=== PATIENT | male | born 1960 | race Caucasian/White ===

== ENCOUNTER 2016-09-09 05:56 | Inpatient (IN) | payer OTHER ==
[2016-09-07 11:55] VITALS: BMI 32.1
--- NOTE | 2016-09-07 16:14 | HP ---
Satellite [facility] - Chief Complaint Chief Complaint: right hip pain - Past Medical History Allergies/Adverse Reactions: Allergies Allergy/AdvReac Type Severity Reaction Status Date / Time No Known Allergies Allergy Verified 09/07/16 11:46 - Current Medications Current Medications: Home Medications Medication Instructions Recorded Gabapentin [Neurontin] 300 mg PO TID 09/07/16 Metoprolol Succinate [Toprol Xl] 100 mg PO HS 09/07/16 Naloxegol Oxalate [Movantik] 25 mg PO DAILY 09/07/16 Oxycodone HCl [Roxicodone] 60 mg PO Q8H 09/07/16 Trazodone HCl 100 mg PO DAILY 09/07/16 [facility] Physical Exam - Physical Examination General Appearance: Well Nourished, Well Developed, Alert & Oriented x3 ENT: Clear Lung: Normal air movement Heart: Regular rate & rhythm Extremities: Other (right hip- +ttp, decr rom, nvi xrays show severe hip djd) Neurological: Intact, Alert, Oriented Satellite Impression/Plan - Impression/Plan Impression: right hip djd Operative Procedure: right filomena thr Date to be Performed: 09/09/16
[2016-09-09] MEDS ORDERED: CELECOXIB 200 MG CAPSULE PO ONE (06:18)
[2016-09-09] MEDS ORDERED: oxyCODONE HCL 10 MG SUSTAINED ACTING TABLET PO ONE (06:18)
[2016-09-09] MEDS ORDERED: TRANEXAMIC ACID 1000 MG/10 ML VIAL IVPUSH ONE (06:18)
[2016-09-09] MEDS ORDERED: CEFAZOLIN 2 GM in DEXTROSE 5%-WATER - 50 ML IVPB ONE (06:18)
[2016-09-09] MEDS ORDERED: GABAPENTIN 300 MG CAPSULE (FP) PO ONE (06:18)
[2016-09-09] MEDS ORDERED: DEXAMETHASONE SOD PHOSPHATE/PF 10 MG/ML SDV ONE ×2 (06:46→07:32)
[2016-09-09] MEDS ORDERED: ROPIVACAINE HCL 0.5% 30ML VIAL ONE (06:46)
[2016-09-09] MEDS ORDERED: MIDAZOLAM HCL 2 MG/2 ML SINGLE DOSE VIAL ONE (06:46)
[2016-09-09] MEDS ORDERED: SODIUM CHLORIDE 0.9% P/F 10 ML VIAL IJ ONE (06:47)
[2016-09-09] MEDS ORDERED: ceFAZolin SODIUM 1 GM VIAL ONE ×2 (07:29→08:27)
[2016-09-09] MEDS ORDERED: VANCOMYCIN 1,000 MG VIAL (RESTRICTED TO ID ONLY) ONE (07:30)
[2016-09-09] MEDS ORDERED: EPINEPHrine/PF 1 MG/1 ML (1:1,000) AMPULE ONE (07:31)
[2016-09-09] MEDS ORDERED: LIDOCAINE 1% P/F 10 MG/ML VIAL ONE (07:32)
[2016-09-09] MEDS ORDERED: BUPIVACAINE HCL/PF (5 MG/ML) 30 ML VIAL IJ ONE (07:32)
[2016-09-09] MEDS ORDERED: BUPIVACAINE HCL/PF 0.5% (5MG/ML) 10 ML VIAL ONE (08:07)
[2016-09-09] MEDS ORDERED: SUCCINYLCHOLINE CHLORIDE 200 MG/10 ML VIAL ONE (08:09)
[2016-09-09] MEDS ORDERED: PROPOFOL 20 ML ONE ×3 (08:09→09:11)
[2016-09-09] MEDS ORDERED: PHENYLEPHRINE HCL 10 MG/1 ML SINGLE DOSE VIAL ONE (08:45)
[2016-09-09] MEDS ORDERED: ePHEDrine SULFATE 50 MG/1 ML AMPULE ONE (08:45)
[2016-09-09] MEDS ORDERED: ONDANSETRON 4 MG/2 ML VIAL ONE (09:13)
[2016-09-09] MEDS ORDERED: VANCOMYCIN 1,000 MG VIAL (RESTRICTED TO ID ONLY) IVPB ONE (09:35)
[2016-09-09] MEDS ORDERED: MAGNESIUM HYDROX 2400MG/30ML ORAL SUSPENSION 30 ML CUP PO PRN (09:47)
[2016-09-09] MEDS ORDERED: ONDANSETRON 4 MG/2 ML VIAL IVPB PRN (09:47)
--- NOTE | 2016-09-09 09:49 | OP ---
Operative Note - Note: Operative Date: 09/09/16 (martín) Pre-Operative Diagnosis: right hip pain Operation: right filomena thr Post-Operative Diagnosis: Same as Pre-op Surgeon: Slim Fountain Hostess Host: Dimitris Winslow Anesthesiologist/INSURANCE TERRITORY MANAGER: Angeles Rodriguez Anesthesia: Spinal, Local Specimens Removed: femoral head Estimated Blood Loss (mls): 200 Operative Report Dictated: Yes
[2016-09-09] MEDS ORDERED: MAG HYDROX/AL HYDROX/SIMETH 30 ML UNIT-DOSE CUP PO PRN (09:54)
[2016-09-09] MEDS ORDERED: LACTATED RINGERS SOLUTION 1,000 ML IV SCH (10:00)
[2016-09-09] MEDS ORDERED: PATIENT'S OWN MEDICATION (NON-FORMULARY) (Naloxegol Oxalate [Movantik] 25 MG) PO SCH (10:00)
[2016-09-09] MEDS ORDERED: ACETAMINOPHEN 325 MG TABLET (FP) ONE (10:54)
[2016-09-09] MEDS: traZODone HCL 50 MG TABLET (FP) PO SCH (11:47)
[2016-09-09] MEDS: PANTOPRAZOLE 40 MG TABLET (FP) PO SCH (11:48)
[2016-09-09] MEDS: MULTIVITAMINS (DAILY MVI) TABLET (FP) PO SCH (11:48)
[2016-09-09] MEDS: SENNOSIDES/DOCUSATE COMBO (SENNA PLUS) TABLET (UD) PO SCH ×2 (11:48→21:41)
--- NOTE | 2016-09-09 12:17 | OP ---
DATE OF OPERATION: 09/09/2016 PREOPERATIVE DIAGNOSIS: Degenerative joint disease, right hip. POSTOPERATIVE DIAGNOSIS: Degenerative joint disease, right hip. PROCEDURE: Right total hip replacement with robotic arm navigation assistance (makoplasty). SURGEON: Slim Fountain MD JOURNEYMAN WIREMAN: DEMETRIS Chadwick ANESTHESIA: Spinal and regional. CLOSURE: [place] total hip system with a 56 Tritanium acetabulum, a 36 +2.5 ceramic head, a No. 5 Accolade II stem, No. 1 Vicryl for capsule and fascia, 0 and 2-0 subcutaneous, 3-0 Monocryl subcuticular for skin with skin glue for skin, 4-0 undyed Vicryl for pin sites. ESTIMATED BLOOD LOSS: Less than 100 mL. COMPLICATIONS: None. CONDITION: To recovery room in stable condition. DESCRIPTION OF OPERATIVE PROCEDURE: The patient was taken to the operating room. Spinal anesthesia as well as sciatic block was administered by the anesthesiologist. The IV Kefzol and TXA were administered prophylactically prior to the case. The patient was placed in the lateral decubitus position with all prominences well padded. An EKG pad was secured to the inferior pole of the patella for limb length calculations intraoperatively. The right hip area was prepped and draped in the usual sterile fashion. A 12.0- to 15.0-cm curved longitudinal incision over the posterolateral aspect of the greater trochanter was made. Hemostasis was achieved with Bovie cautery. Sharp dissection was carried down to the level of the fascia. The fascia was opened the entire length of the incision, spreading the gluteus maribeth fibers in the direction of their origin. A Charnley retractor was placed in this layer, and care was taken to be far away from the sciatic nerve. The short external rotators were detached off the insertion of the greater trochanter and peeled off the capsule. A posterior capsulectomy was then performed. A checkpoint was malleted into the greater trochanter. Three small stab incisions were done on the iliac crest. Through these stab incisions, threaded guide pins were drilled into the iliac crest. These pins were fastened to the Navigation array. The check point on the greater trochanter and the EKG pad on the inferior pole of the patella were used to measure preoperative limb length and offset. The hip was then dislocated. The hip was osteotomized at the appropriate level as directed by the preoperative template. Anterior and posterior retractors were placed around the acetabulum. Circumferential labrum was excised. A checkpoint was malleted into the acetabulum superiorly. The acetabulum was then registered with the Navigation device with multiple sites within the acetabulum and around the rim of the acetabulum. It was then confirmed popping the blue bubbles, confirming ideal position and confirmation of adequate registration with the Navigation device. Using a 48 reamer, which was decided preoperatively on the preoperative template, the robotic arm was brought into the field and was used to ream the acetabulum down to the appropriate depth with the appropriate orientation and inversion applied. After reaming, a good hemispherical bleeding surface was encountered in the acetabulum. A ESTEVAN shell of the appropriate size was then malleted into place achieving excellent fit. Confirmation of the appropriate orientation and inversion was confirmed using the probe and assuring that the acetabular cup was placed in the ideal position as templated preoperatively. A real liner was then clipped into place with a 10-degree lip in the posterior-superior quadrant. Anterior and posterior osteophytes were removed using osteotome. Next, our attention was directed to the femur. The proximal femur was opened with a box chisel, rat-tail, anchovy and serial reamers. This was done until the appropriate reamer achieved good fit and fill of the proximal femur. A trial reduction with the appropriate neck and head, as again measured from our preoperative template, was performed. Limb lengths were confirmed both visually and using the Navigation device, again measuring the inferior pole of the patella and the checkpoint of the greater trochanter. This confirmed ideal position of the femoral component, lengths, and offset. The trial components were removed. The real component was malleted into place. The head was cold-welded to the Charnley and the hip was reduced. Again, the hip was found to have equal limb lengths as described previously. The hip was also taken through a range of motion and found to be stable in external rotation and extension, was stable in marked flexion, stable in adduction and internal rotation, and had a positive hang test and negative telescoping. The hip was irrigated with copious amounts of irrigation. Hemostasis was achieved. Vancomycin powder was sprinkled into the joint. A second dose of TXA was administered. The fascia was closed with No. 1 Vicryl interrupted suture, 0 and 2-0 for subcutaneous, and 3-0 Monocryl subcuticular for skin with skin glue. This was followed by an Aquacel dressing. The patient was flipped into the supine position. Bilateral SCDs and an abduction pillow were applied. X-rays showed good position of the components. The patient was awakened from anesthesia and transferred to the recovery room in stable condition. Megan MONTIEL/[id number]
[2016-09-09] MEDS: oxyCODONE HCL 5 MG TABLET PO SCH ×2 (14:49→22:08)
[2016-09-09] MEDS: CEFAZOLIN 2 GM/D5W 50 ML IVPB SCH ×2 (16:02→23:57)
[2016-09-09] MEDS: KETOROLAC TROMETHAMINE 30 MG/1 ML VIAL IVPUSH SCH (17:28)
[2016-09-09] MEDS: ACETAMINOPHEN 325 MG TABLET (FP) PO SCH ×2 (17:29→23:57)
[2016-09-09] MEDS: METOPROLOL SUCCINATE 100 MG TAB.SR.24H (FP) PO SCH (21:41)
[2016-09-09] MEDS: GABAPENTIN 300 MG CAPSULE (FP) PO SCH (21:41)
[2016-09-09] MEDS: HYDROmorphone *PCA* 10MG/50ML DISP.SYRIN PCA SCH (22:45)
[2016-09-10] MEDS: KETOROLAC TROMETHAMINE 30 MG/1 ML VIAL IVPUSH SCH ×3 (01:18→18:13)
[2016-09-10] MEDS ORDERED: oxyCODONE HCL 5 MG TABLET ONE (06:36)
[2016-09-10] MEDS: ACETAMINOPHEN 325 MG TABLET (FP) PO SCH ×4 (06:39→23:49)
[2016-09-10] MEDS: oxyCODONE HCL 5 MG TABLET PO SCH ×4 (06:40→23:44)
[2016-09-10 07:37] LABS: MCH 27.2 pg (25.7-33.7); MCHC 34.1 g/dl (32.0-35.9); MEAN CELL VOLUME 79.8 fl (80-96); MEAN PLT VOLUME 7.1 fl (7.5-11.1); PLATELET COUNT 187 K/MM3 (134-434); RDW 13.1 % (11.9-15.9); WHITE BLOOD COUNT 9.5 K/mm3 (4.0-10.0)
[2016-09-10] MEDS: ASPIRIN 325 MG TABLET PO SCH (09:44)
[2016-09-10] MEDS: traZODone HCL 50 MG TABLET (FP) PO SCH ×2 (09:46→12:29)
[2016-09-10] MEDS: GABAPENTIN 300 MG CAPSULE (FP) PO SCH ×2 (09:47→22:30)
[2016-09-10] MEDS: PANTOPRAZOLE 40 MG TABLET (FP) PO SCH (09:47)
[2016-09-10] MEDS: SENNOSIDES/DOCUSATE COMBO (SENNA PLUS) TABLET (UD) PO SCH ×2 (09:48→22:00)
[2016-09-10] MEDS: MULTIVITAMINS (DAILY MVI) TABLET (FP) PO SCH (09:48)
[2016-09-10] MEDS ORDERED: traZODone HCL 50 MG TABLET (FP) PO SCH (22:00)
[2016-09-10] MEDS: METOPROLOL SUCCINATE 100 MG TAB.SR.24H (FP) PO SCH (22:25)
[2016-09-10] MEDS: HYDROmorphone *PCA* 10MG/50ML DISP.SYRIN PCA SCH (23:12)
[2016-09-11] MEDS: KETOROLAC TROMETHAMINE 30 MG/1 ML VIAL IVPUSH SCH (02:03)
[2016-09-11] MEDS: ACETAMINOPHEN 325 MG TABLET (FP) PO SCH (06:27)
[2016-09-11 06:28] VITALS: BP 137/75; PULSE 78; TEMP 98.4
[2016-09-11 08:12] LABS: MCH 26.8 pg (25.7-33.7); MCHC 33.3 g/dl (32.0-35.9); MEAN CELL VOLUME 80.5 fl (80-96); MEAN PLT VOLUME 8.1 fl (7.5-11.1); PLATELET COUNT 179 K/MM3 (134-434); RDW 13.7 % (11.9-15.9); WHITE BLOOD COUNT 6.5 K/mm3 (4.0-10.0)
[2016-09-11] MEDS: ASPIRIN 325 MG TABLET PO SCH (08:55)
[2016-09-11] MEDS: oxyCODONE HCL 5 MG TABLET PO SCH (08:57)
--- NOTE | 2016-09-11 09:47 | PN ---
Progress Note (short form) - Note Progress Note: AVSS COMFORTABLE BANDAGES CLEAN AND DRY CALF SOFT AND NT NVI HCY OK IMP: DOING WELL PLAN: DC TO HOME, F/U MY OFFICE X 10 DAYS
--- NOTE | 2016-09-15 12:20 | PATH ---
Surgical Pathology Report Patient Name: JULIA LEIGH Med. Rec. #: [id number] /Age/Gender: 1960 (Age: 56) / M Account: [id number] Location: [facility] Taken: 09/09/2016 Received: 09/09/2016 Reported: 09/15/2016 Physicians: Slim Fountain M.D. Specimen(s) Received RIGHT FEMORAL HEAD BONE Clinical History Osteoarthritis right hip Final Diagnosis FEMORAL HEAD, RIGHT, TOTAL HIP REPLACEMENT: DEGENERATIVE JOINT DISEASE. Electronically Signed Leta Donald M.D. Gross Description Received in formalin, labeled "right femoral head," is a 5.3 x 5.2 x 4.8 cm. femoral head with a 1 cm in length portion of femoral neck attached. The margin of resection is smooth. There is a 5.5 cm in greatest dimension area of eburnation present. The remaining articular surface is peguero-yellow and diffusely nodular and granular. The underlying trabecular bone is yellow and hard. A manufacturer's service representative section is submitted in one cassette, following decalcification. 09/13/201609/13/2016
== END 2016-09-11 09:40 | disposition home health service (06) | DRG 470 ==
LOC: FM/S 05:56
PROVIDERS: ADMIT Orthopaedic Surgery; ATTEND Orthopaedic Surgery
PROC: 8E0W0CZ Robotic Assisted Procedure of Trunk Region, Open Approach (ICD-10-PCS; 2016-09-09)
PROC: 0SR903A Replacement of Right Hip Joint with Ceramic Synthetic Substitute, Uncemented, Open Approach (ICD-10-PCS; principal; 2016-09-09 08:38)
DX: M16.11 Unilateral primary osteoarthritis, right hip (principal)
CPT/HCPCS: 36415; 73502-TC-RT; 85027; 88304-TC; 88311-TC; 94010; 94760; 97116-GP

== ENCOUNTER 2019-04-30 07:15 | Inpatient (IN) | payer OTHER ==
[2019-04-15 11:56] VITALS: BMI 32.8
[2019-04-30] MEDS ORDERED: CEFAZOLIN 3 GM in DEXTROSE 5%-WATER - 100 ML IVPB ONE (07:32)
[2019-04-30] MEDS ORDERED: CELECOXIB 200 MG CAPSULE PO ONE (07:32)
[2019-04-30] MEDS ORDERED: TRANEXAMIC ACID 1000 MG/10 ML VIAL IVPUSH ONE (07:32)
--- NOTE | 2019-04-30 07:59 | HP ---
Satellite [facility] - Chief Complaint Chief Complaint: left hip pain - Past Medical History Allergies/Adverse Reactions: Allergies Allergy/AdvReac Type Severity Reaction Status Date / Time No Known Allergies Allergy Verified 09/07/16 11:46 - Current Medications Current Medications: Home Medications Medication Instructions Recorded Metoprolol Succinate [Toprol Xl] 100 mg PO HS 09/07/16 Naloxegol Oxalate [Movantik] 25 mg PO DAILY 09/07/16 traZODone HCL [Trazodone HCl] 100 mg PO HS 09/07/16 Oxycodone HCl 30 mg PO ASDIR 04/15/19 Satellite Physical Exam - Physical Examination General Appearance: Well Nourished, Well Developed, Alert & Oriented x3 ENT: Clear Lung: Normal air movement Extremities: Other (left hip- + ttp, decr rom , nvi, xrays show grade 4 hip djd) Neurological: Intact, Alert, Oriented Satellite Impression/Plan - Impression/Plan Impression: left hip djd Operative Procedure: left filomena thr Date to be Performed: 04/30/19
[2019-04-30] MEDS ORDERED: MIDAZOLAM HCL 2 MG/2 ML SINGLE DOSE VIAL ONE (08:17)
[2019-04-30] MEDS ORDERED: ceFAZolin SODIUM 1 GM VIAL ONE ×3 (08:48→18:04)
[2019-04-30] MEDS ORDERED: VANCOMYCIN 1,000 MG VIAL (RESTRICTED TO ID ONLY) ONE ×2 (08:48→10:23)
[2019-04-30] MEDS ORDERED: DEXAMETHASONE SOD PHOSPHATE 4 MG/1 ML VIAL ONE (08:51)
[2019-04-30] MEDS ORDERED: SODIUM CHLORIDE 0.9% P/F 10 ML VIAL IJ ONE (08:51)
[2019-04-30] MEDS ORDERED: LIDOCAINE HCL/PF 2% SDV 5ML VIAL ONE (08:53)
[2019-04-30] MEDS ORDERED: PROPOFOL 20 ML ONE ×4 (08:53→11:09)
[2019-04-30] MEDS ORDERED: ONDANSETRON 4 MG/2 ML VIAL IVPUSH PRN ×2 (09:58→11:39)
[2019-04-30] MEDS ORDERED: MAG HYDROX/AL HYDROX/SIMETH 30 ML UNIT-DOSE CUP PO PRN (09:58)
[2019-04-30] MEDS ORDERED: MAGNESIUM HYDROX 2400MG/30ML ORAL SUSPENSION 30 ML CUP PO PRN (09:58)
[2019-04-30] MEDS ORDERED: LACTATED RINGERS SOLUTION 1,000 ML IV SCH ×2 (10:00→11:45)
[2019-04-30] MEDS ORDERED: PATIENT'S OWN MEDICATION (NON-FORMULARY) (Naloxegol Oxalate [Movantik] 25 MG) PO SCH (10:00)
[2019-04-30] MEDS ORDERED: PANTOPRAZOLE 40 MG TABLET (FP) PO SCH (10:00)
[2019-04-30] MEDS ORDERED: MULTIVITAMINS (DAILY MVI) TABLET (FP) PO SCH (10:00)
[2019-04-30] MEDS ORDERED: VANCOMYCIN 1,000 MG VIAL (RESTRICTED TO ID ONLY) IVPB ONE (11:04)
--- NOTE | 2019-04-30 11:30 | OP ---
Operative Note - Note: Operative Date: 04/30/19 (martín) Pre-Operative Diagnosis: left hip djd Operation: left filomena thr Post-Operative Diagnosis: Same as Pre-op Surgeon: Slim Fountain Hydraulic Dredge Operator: Dimitris Winslow Anesthesia: Spinal, Local Specimens Removed: femoral head Estimated Blood Loss (mls): 100
[2019-04-30] MEDS: HYDROmorphone HCL CARPU-JECT 2 MG/1 ML DISP.SYRIN IVPUSH ONE ×2 (11:40→11:50)
[2019-04-30] MEDS ORDERED: HYDROmorphone *PCA* 10MG/50ML DISP.SYRIN PCA SCH (11:45)
[2019-04-30] MEDS ORDERED: HYDROmorphone HCl 2 MG/ML VIAL ONE (11:54)
[2019-04-30] MEDS ORDERED: ACETAMINOPHEN INJECTION 100 ML IVPB ONE (12:10)
[2019-04-30] MEDS ORDERED: ACETAMINOPHEN 1000 MG/100 ML VIAL (NON FORMULARY) IVPB ONE (12:30)
--- NOTE | 2019-04-30 13:37 | SPEC ---
DATE OF OPERATION: 04/30/2019 PREOPERATIVE DIAGNOSIS: Degenerative joint disease, left hip. POSTOPERATIVE DIAGNOSIS: Degenerative joint disease, left hip. PROCEDURE PERFORMED: Left total hip replacement with robotic-assisted navigation (MAKOplasty). SURGICAL ATTENDING: Isidro Fountain MD AUTO CLAIM REPRESENTATIVE: DEMETRIS Chadwick ANESTHESIA: Regional and spinal. CLOSURE: A [place] total hip system with a 56 Trident II press-fit acetabular shell, a number 5 Accolade II femoral stem, a 36-mm ceramic femoral head +2.5 in length, a polyethylene liner with 10-degree lip accepting a 36-mm head. Number 1 Vicryl for fascia, 0 and 2-0 subcutaneous, 3-0 V-Loc for skin with skin glue, 4-0 undyed Vicryl for pin sites. ESTIMATED BLOOD LOSS: Less than 100 mL. COMPLICATIONS: None. CONDITION: To the recovery room in stable condition. DESCRIPTION OF PROCEDURE: The patient was taken to the operating room on April 30, 2019. General and regional anesthesia was administered by the anesthesiologist. IV Kefzol and TXA were administered prophylactically prior to the case. The patient was placed in the lateral decubitus position will all prominences well-padded. The left hip area was prepped and draped in the usual sterile fashion. Using 3 small stab incisions over the iliac crest, 3 threaded pins were drilled in power fashion through the 2 tables of the crest. These pins were fastened and the navigation array for the Richard navigation system. Next, a 12 to 15-cm curved longitudinal incision over the posterolateral aspect of the greater trochanter was incised. Hemostasis was achieved with Bovie cautery. Sharp dissection was carried down to level of the fascia. The fascia was opened the entire length of the incision, spreading the fibers of the gluteus maribeth in the direction of origin. A Charnley retractor was placed in this layer. Care was taken not to impale the sciatic nerve. The short external rotators were detached off the insertion of the greater trochanter and peeled off the capsule. A posterior capsulotomy was then performed. A check point was malleted into the greater trochanter and a point on the inferior pole of the patella was obtained as well. These 2 points were used to assess the preoperative offset and limb lengths of the hip. The hip was then dislocated. The femoral neck was then osteotomized down to the appropriate level as directed by the navigation device. Anterior and posterior retractors were placed, exposing the acetabulum. A circumferential labral excision was performed. A check point was malleted into the acetabulum as well. Multiple sites inside the acetabulum and around the rim were utilized to register the acetabulum with the navigation device. An excellent registration of less than 0.5 mm was obtained. The hip was then reamed with the appropriate reamer down to the appropriate depth, with the appropriate orientation and version as assessed on our preoperative plan for this patient. The reamer was removed and the acetabulum was inspected to have good bleeding surfaces throughout. The real acetabular cup was then malleted down into place, with the holes in the appropriate position, until an excellent fixation was obtained. No screws were necessary. The navigation device ensured appropriate orientation and version, with the depth as predetermined. The appropriate liner was then clipped into place. Attention was directed to the femur. The proximal femur was prepared by use a box chisel, a canal finder and serial broaches until the broach achieved excellent rigidity in the proximal femur with the appropriate version being applied. A calcar planer was used to smooth off the calcar flush with the trial components. A trial reduction with the appropriate head was done, and the hip was reduced. The hip was taken through a range of motion from full extension with external rotation to marked flexion and was stable at 90 degrees of flexion. It was stable to marked abduction and internal rotation, with a positive hang test and negative telescoping. Limb lengths were ascertained visually as well as with the navigation device to be within the targeted range for this patient. The trial component was removed. The real component was then malleted into place. The head was cold welded to the trunnion, and the hip was reduced. Range of motion, stability and limb lengths were as described in the trial component. Then the hip was pulse antibiotic irrigated. Vancomycin powder was placed in the hip joint. The capsule was closed. The fascia was then closed as well using number 1 Vicryl interrupted suture, 0 and 2-0 subcutaneous, and 3-0 V-Loc for the skin. 4-0 undyed Vicryl was used to close the pin sites after the pins were removed. All check points were also removed. Sterile Aquacel dressing was applied. The patient was awakened from anesthesia and transferred into the supine position. Bilateral SCDs and an abduction pillow were placed. X-rays revealed excellent position of the components. The patient was transferred to the recovery room in stable condition, with no complications. Estimated blood loss was less than 100 mL. ISIDRO FOUNTAIN M.D. EDILIA/[id number]
[2019-04-30] MEDS ORDERED: DEXTROSE 5%-WATER 100 ML IVPB ONE (18:04)
--- NOTE | 2019-04-30 18:08 | PN ---
Progress Note, Physician - Current Medication List Current Medications: Active Medications Acetaminophen (Tylenol -) 650 mg PO Q6H ALE Stop: 05/03/19 18:29 Al Hydroxide/Mg Hydroxide (Mylanta Oral Suspension -) 30 ml PO Q4H PRN PRN Reason: DYSPEPSIA Aspirin (Asa -) 325 mg PO DAILY@0800 [facility] Hydromorphone HCl (Hydromorphone 10 Mg/50 Ml-Ns) 10 mg WOOD FINISHER WOOD FINISHER ALE; Protocol Stop: 05/07/19 11:46 Last Admin: 04/30/19 12:05 Dose: 10 mg Cefazolin Sodium 3 gm/ (Dextrose) 100 mls @ 100 mls/hr IVPB Q8H ALE Stop: 05/01/19 02:59 Lactated Ringer's (Lactated Ringers Solution) 1,000 mls @ 125 mls/hr IV ASDIR ALE Stop: 05/01/19 06:00 Lactated Ringer's (Lactated Ringers Solution) 1,000 mls @ 75 mls/hr IV ASDIR ALE Magnesium Hydroxide (Milk Of Magnesia -) 30 ml PO PRN PRN PRN Reason: CONSTIPATION Metoprolol Succinate (Toprol Xl -) 100 mg PO HS [facility] Multivitamins/Minerals/Vitamin C (Tab-A-Vit -) 1 tab PO DAILY [facility] Non-Formulary Medication (Naloxegol Oxalate [Movantik]) 25 mg PO DAILY [facility] Ondansetron HCl (Zofran Injection) 4 mg IVPUSH Q6H PRN PRN Reason: NAUSEA Pantoprazole Sodium (Protonix -) 40 mg PO DAILY [facility] Senna/Docusate Sodium (Pericolace -) 2 tablet PO BID [facility]LE Trazodone HCl (Desyrel -) 100 mg PO HS [facility] - Objective Vital Signs: Vital Signs Temperature 97.5 F L 04/30/19 14:30 Pulse Rate 71 04/30/19 16:05 Respiratory Rate 16 04/30/19 16:05 Blood Pressure 134/79 04/30/19 16:05 O2 Sat by Pulse Oximetry (%) 98 04/30/19 16:05
--- NOTE | 2019-04-30 18:09 | CONSULT ---
Consult - Past Medical History Cardio/Vascular: Yes: HTN Musculoskeletal: Yes: Osteoarthritis - Past Surgical History Past Surgical History: Yes: Joint Replacement - Alcohol/Substance Use Hx Alcohol Use: No - Smoking History Smoking history: Never smoked Home Medications - Allergies Allergies/Adverse Reactions: Allergies Allergy/AdvReac Type Severity Reaction Status Date / Time No Known Allergies Allergy Verified 09/07/16 11:46 - Home Medications Home Medications: Ambulatory Orders Metoprolol Succinate [Toprol Xl] 100 mg PO HS 09/07/16 Naloxegol Oxalate [Movantik] 25 mg PO DAILY 09/07/16 traZODone HCL [Trazodone HCl] 100 mg PO HS 09/07/16 Oxycodone HCl 30 mg PO ASDIR 04/15/19 Physical Exam Vital Signs: Vital Signs Temperature 97.5 F L 04/30/19 14:30 Pulse Rate 71 04/30/19 16:05 Respiratory Rate 16 04/30/19 16:05 Blood Pressure 134/79 04/30/19 16:05 O2 Sat by Pulse Oximetry (%) 98 04/30/19 16:05 Cardiovascular: Yes: Regular Rate and Rhythm Respiratory: Yes: Regular, CTA Bilaterally Gastrointestinal: Yes: Normal Bowel Sounds, Soft Edema: No Peripheral Pulses WNL: Yes Wound/Incision: Yes: Dressing Dry and Intact Neurological: Yes: Alert, Oriented Problem List - Problems (1) HTN (hypertension) Assessment/Plan: same meds monitor Code(s): I10 - ESSENTIAL (PRIMARY) HYPERTENSION (2) S/P hip replacement Assessment/Plan: dvt prophylaxis per ortho Code(s): Z96.649 - PRESENCE OF UNSPECIFIED ARTIFICIAL HIP JOINT (3) Osteoarthritis Code(s): M19.90 - UNSPECIFIED OSTEOARTHRITIS, UNSPECIFIED SITE
[2019-04-30] MEDS: CEFAZOLIN 3 GM in DEXTROSE 5%-WATER 100 ML IVPB SCH (18:19)
[2019-04-30] MEDS: ACETAMINOPHEN 325 MG TABLET (FP) PO SCH (18:20)
[2019-04-30] MEDS: SENNOSIDES/DOCUSATE COMBO (SENNA PLUS) TABLET (UD) PO SCH (21:26)
[2019-04-30] MEDS ORDERED: traZODone HCL 100 MG TABLET (FP) PO SCH (22:00)
[2019-05-01] MEDS: ACETAMINOPHEN 325 MG TABLET (FP) PO SCH ×3 (00:29→12:29)
[2019-05-01] MEDS ORDERED: DEXTROSE 5%-WATER 100 ML IVPB ONE (00:36)
[2019-05-01] MEDS ORDERED: ceFAZolin SODIUM 1 GM VIAL ONE (00:36)
[2019-05-01] MEDS: CEFAZOLIN 3 GM in DEXTROSE 5%-WATER 100 ML IVPB SCH (01:02)
[2019-05-01] MEDS: KETOROLAC TROMETHAMINE 30 MG/1 ML VIAL IVPUSH PRN ×2 (02:16→07:20)
[2019-05-01] MEDS ORDERED: ASPIRIN 325 MG TABLET PO SCH (08:00)
[2019-05-01 08:01] LABS: HEMATOCRIT 36.9 % (35.4-49); MCH 27.2 pg (25.7-33.7); MCHC 32.5 g/dl (32.0-35.9); MEAN CELL VOLUME 83.7 fl (80-96); PLATELET COUNT 213 K/MM3 (134-434); RBC 4.41 M/mm3 (4.00-5.60); RDW 13.3 % (11.9-15.9)
[2019-05-01] MEDS ORDERED: oxyCODONE HCL 5 MG TABLET PO PRN (08:02)
[2019-05-01] MEDS ORDERED: HYDROmorphone HCL CARPU-JECT 1 MG/1 ML DISP.SYRIN IVPUSH PRN (08:09)
--- NOTE | 2019-05-01 08:28 | PN ---
Progress Note, Physician - Current Medication List Current Medications: Active Medications Acetaminophen (Tylenol -) 650 mg PO Q6H [facility] Stop: 05/03/19 18:29 Last Admin: 05/01/19 06:45 Dose: 650 mg Al Hydroxide/Mg Hydroxide (Mylanta Oral Suspension -) 30 ml PO Q4H PRN PRN Reason: DYSPEPSIA Aspirin (Asa -) 325 mg PO DAILY@0800 [facility] Last Admin: 05/01/19 08:14 Dose: 325 mg Hydromorphone HCl (Hydromorphone 10 Mg/50 Ml-Ns) 10 mg PECAN PICKER PECAN PICKER [facility]; Protocol Stop: 05/07/19 11:46 Last Admin: 04/30/19 12:05 Dose: 10 mg Hydromorphone HCl (Dilaudid Injection -) 1 mg IVPUSH Q4H PRN PRN Reason: PAIN LEVEL 7 - 10 Lactated Ringer's (Lactated Ringers Solution) 1,000 mls @ 75 mls/hr IV ASDIR [facility] Ketorolac Tromethamine (Toradol Injection -) 30 mg IVPUSH Q6H PRN PRN Reason: PAIN LEVEL 4 - 6 Stop: 05/06/19 02:07 Last Admin: 05/01/19 07:20 Dose: 30 mg Magnesium Hydroxide (Milk Of Magnesia -) 30 ml PO PRN PRN PRN Reason: CONSTIPATION Metoprolol Succinate (Toprol Xl -) 100 mg PO HS [facility] Last Admin: 04/30/19 21:26 Dose: 100 mg Multivitamins/Minerals/Vitamin C (Tab-A-Vit -) 1 tab PO DAILY [facility] Non-Formulary Medication (Naloxegol Oxalate [Movantik]) 25 mg PO DAILY [facility] Ondansetron HCl (Zofran Injection) 4 mg IVPUSH Q6H PRN PRN Reason: NAUSEA Oxycodone HCl (Roxicodone -) 10 mg PO Q3H PRN PRN Reason: PAIN LEVEL 4 - 6 Oxycodone HCl (Oxycontin -) 30 mg PO BID [facility] Stop: 05/04/19 08:02 Pantoprazole Sodium (Protonix -) 40 mg PO DAILY [facility] Senna/Docusate Sodium (Pericolace -) 2 tablet PO BID [facility] Last Admin: 04/30/19 21:26 Dose: 2 tablet Trazodone HCl (Desyrel -) 100 mg PO HS [facility] Last Admin: 04/30/19 21:26 Dose: 100 mg - Objective Vital Signs: Vital Signs Temperature 99.6 F 05/01/19 05:00 Pulse Rate 69 05/01/19 05:00 Respiratory Rate 18 05/01/19 08:17 Blood Pressure 116/72 05/01/19 05:00 O2 Sat by Pulse Oximetry (%) 97 05/01/19 08:17 Cardiovascular: Yes: Regular Rate and Rhythm Respiratory: Yes: Regular, CTA Bilaterally Gastrointestinal: Yes: Normal Bowel Sounds, Soft Labs: CBC, BMP 05/01/19 07:22 Problem List - Problems (1) HTN (hypertension) Assessment/Plan: same meds monitor Code(s): I10 - ESSENTIAL (PRIMARY) HYPERTENSION (2) S/P hip replacement Assessment/Plan: dvt prophylaxis per ortho Code(s): Z96.649 - PRESENCE OF UNSPECIFIED ARTIFICIAL HIP JOINT (3) Osteoarthritis Assessment/Plan: CHRONIC WITH BACK ISSUES FOLLOWS WITH PAIN MANAGEMENT Code(s): M19.90 - UNSPECIFIED OSTEOARTHRITIS, UNSPECIFIED SITE
--- NOTE | 2019-05-01 09:14 | PN ---
Progress Note (short form) - Note Progress Note: Ortho Pt seen and examined s/p left filomena thr pod #1 Selected Entries 05/01/19 05:00 Temperature 99.6 F Pulse Rate 69 Respiratory 18 Rate Blood Pressure 116/72 Laboratory Tests 05/01/19 07:22 WBC 8.0 Hgb 12.0 Hct 36.9 D Plt Count 213 dressing c/d/i, calf soft, nt nvi a/p PT hip precautions dvt ppx pain control d/c home either today/tomorrow
--- NOTE | 2019-05-01 09:39 | PN ---
Progress Note (short form) - Note Progress Note: Anesthesia post op/pain Pt seen and examined S:Alert and awake, comfortable O: Vital Signs Temperature 99.6 F 05/01/19 05:00 Pulse Rate 69 05/01/19 05:00 Respiratory Rate 18 05/01/19 08:17 Blood Pressure 116/72 05/01/19 05:00 O2 Sat by Pulse Oximetry (%) 97 05/01/19 08:17 CBC, BMP 05/01/19 07:22 A/P: Current Active Problems HTN (hypertension) (Acute) Osteoarthritis (Acute) S/P hip replacement (Acute) Doing well post op Continue current care Jorge Rushing MD
[2019-05-01] MEDS ORDERED: oxyCODONE HCL 10 MG SUSTAINED ACTING TABLET PO SCH (10:00)
[2019-05-01] MEDS ORDERED: LORATADINE 10 MG TABLET PO SCH (10:00)
[2019-05-01] MEDS: SENNOSIDES/DOCUSATE COMBO (SENNA PLUS) TABLET (UD) PO SCH (10:18)
--- NOTE | 2019-05-01 13:37 | DS ---
Physical Examination Vital Signs: Vital Signs Temperature 97.9 F 05/01/19 10:00 Pulse Rate 66 05/01/19 10:00 Respiratory Rate 19 05/01/19 10:00 Blood Pressure 117/59 L 05/01/19 10:00 O2 Sat by Pulse Oximetry (%) 96 05/01/19 10:00 Labs: CBC, BMP 05/01/19 07:22 Discharge Summary Problems reviewed: Yes Reason For Visit: OSTEOARTHRITIS Current Active Problems HTN (hypertension) (Acute) Osteoarthritis (Acute) S/P hip replacement (Acute) Procedures: Principal: left thr Hospital Course: admitted for elective left filomena thr, post-op as per protocol, stable for d/c Condition: Good - Instructions Diet, Activity, Other Instructions: Post-op Instructions-Total Hip Replacement Call the office for a follow-up appointment in 1 week - [phone] Aspirin 325mg daily for 6 weeks. Pain medication was sent into your pharmacy. Apply Graduated Compression Stockings (TEDs) to both lower extremities- remove daily for hygiene ONLY Apply Sequential Compression Device (SCDs) to both Lower extremities remove for PT and hygiene ONLY Apply cold packs to affected area for 15 minutes every 2 hours. Physical Therapist will come to your home for the first 5 days. You will be set up with outpatient PT at your first post-operative visit. Patient may ambulate as tolerated-encourage self care (at least every 2-3 hours while awake) with walker or cane Maintain Aquacel (waterproof) dressing to operative wound (will be removed by surgeon at first office visit) Shower with Aquacel dressing in place-if Aquacel integrity compromised, remove and apply dry sterile dressing and notify Orthopedist. DO NOT SHOWER unless Orthopedists approves without Aquacel dressing CONTACT THE OFFICE FOR ANY CHANGE IN YOUR CONDITION (for example-fever greater than 102 degrees, excessive bleeding from operative site, purulent drainage, severe swelling or pain) GO TO THE EMERGENCY ROOM IF THERE IS A MEDICAL EMERGENCY Hip Precautions: * Keep a rolled towel under affected heel while in bed or chair (to keep knee in extension) * Dependent upon approach: * Posterior - do not cross legs; do not sit on low chairs or toilets. * If you have any questions, please do not hesitate to call the office - [phone]. Referrals: Slim Fountain MD [Staff Physician] - Disposition: VNS/HOME HEALTH CARE - Home Medications Comprehensive Discharge Medication List: Ambulatory Orders Metoprolol Succinate [Toprol Xl] 100 mg PO HS 09/07/16 Naloxegol Oxalate [Movantik] 25 mg PO DAILY 09/07/16 traZODone HCL [Trazodone HCl] 100 mg PO HS 09/07/16 Oxycodone HCl 30 mg PO ASDIR 04/15/19 Oxycodone HCl/Acetaminophen [Percocet 10-325 mg Tablet] 1 each PO Q6H #40 tablet MDD 4 05/01/19
[2019-05-01 14:19] VITALS: BP 117/80; PULSE 77; TEMP 99.7
--- NOTE | 2019-05-03 18:55 | PATH ---
Surgical Pathology Report Patient Name: JULIA LEIGH Med. Rec. #: [id number] /Age/Gender: 1960 (Age: 58) / M Account: [id number] Location: [facility] Taken: 04/30/2019 Received: 04/30/2019 Reported: 05/03/2019 Physicians: Slim Fountain M.D. Specimen(s) Received LEFT FEMORAL HEAD Clinical History Osteoarthritis left hip Final Diagnosis BONE, FEMORAL HEAD, LEFT, TOTAL HIP REPLACEMENT: BONE WITH DEGENERATIVE JOINT DISEASE. Electronically Signed Deja Aguirre M.D. Gross Description Received in formalin, labeled "left femoral head," is a 4.8 x 4.8 x 4.5 cm. femoral head with a 1.7 cm in length portion of femoral neck attached. The margin of resection is smooth. There is a 3.8 cm in greatest dimension area of eburnation present. The remaining articular surface is peguero-yellow and diffusely granular and nodular. The underlying trabecular bone is yellow and hard. A group sales representative section is submitted in one cassette, following decalcification. 05/01/2019 saudi05/01/2019
== END 2019-05-01 14:00 | disposition home health service (06) | DRG 470 ==
LOC: FM/S 07:15
PROVIDERS: ADMIT Orthopaedic Surgery; ATTEND Orthopaedic Surgery
PROC: 8E0W0CZ Robotic Assisted Procedure of Trunk Region, Open Approach (ICD-10-PCS; 2019-04-30)
PROC: 0SRB0JA Replacement of Left Hip Joint with Synthetic Substitute, Uncemented, Open Approach (ICD-10-PCS; principal; 2019-04-30 10:22)
DX: M16.12 Unilateral primary osteoarthritis, left hip (principal); I10 Essential (primary) hypertension
CPT/HCPCS: 36415; 73502-TC-LT-FY; 85027; 86803; 87389; 88305-TC; 88311-TC; 94760; 97116-GP; 97163-GP; J0131

== ENCOUNTER 2019-05-25 09:51 | Emergency (ER) | payer OTHER ==
[2019-05-25 09:58] VITALS: BP 144/88; PULSE 88; TEMP 97.8; BMI 31.5
--- NOTE | 2019-05-25 10:00 | PDOC ---
History of Present Illness - General Chief Complaint: Pain, Acute Stated Complaint: LEFT HIP DRAINAGE/PAIN Time Seen by Provider: 05/25/19 09:59 - History of Present Illness Initial Comments: 05/25/19 10:10 58yo male s/p L hip replacement presents ambulatory with a cane for eval of drainage from the L hip. Pt is s/p about 4 weeks from a L hip replacement for osteoarthritis. Last seen by Dr. Fountain on Monday and was told to follow up again Monday. When he went to the office yesterday it was closed. Pt states his L hip has been draining serosanguinous fluid since last monday. No abx. No f/c. No cp/sob. No abd pain. Pt states pain is 9/10 to the L hip. Very mild redness to the distal incision. No wound dehiscence. Pt denies n/v/d. No dysuria. Hx of a staph infection to the knee in . Pt denies all other complaints. Takes Oxycontin 30mg for the pain- took it this AM. Pmhx: denies All: nkda Pshx: R knee sx, R hip replacement, L hip replacement Past History - Past Medical History Allergies/Adverse Reactions: Allergies Allergy/AdvReac Type Severity Reaction Status Date / Time No Known Allergies Allergy Verified 05/25/19 09:52 Home Medications: Ambulatory Orders Metoprolol Succinate [Toprol Xl] 100 mg PO HS 09/07/16 Naloxegol Oxalate [Movantik] 25 mg PO DAILY 09/07/16 traZODone HCL [Trazodone HCl] 100 mg PO HS 09/07/16 Oxycodone HCl 30 mg PO ASDIR 04/15/19 Oxycodone HCl/Acetaminophen [Percocet 10-325 mg Tablet] 1 each PO Q6H #40 tablet MDD 4 05/01/19 Amoxicillin/Potassium Clav [Augmentin 875-125 Tablet] 1 each PO BID #20 tablet 05/25/19 Anemia: No Asthma: No Cancer: No Cardiac Disorders: No CVA: No COPD: No CHF: No Dementia: No Diabetes: No GI Disorders: No Disorders: No HTN: Yes Hypercholesterolemia: No Liver Disease: No Seizures: No Thyroid Disease: No - Surgical History Abdominal Surgery: Yes (Umbilical Hernia Repair) Appendectomy: No Cardiac Surgery: No Cholecystectomy: No Lung Surgery: No Neurologic Surgery: Yes (Lumbar Discectomy x2) Orthopedic Surgery: Yes (Right Kne Meniscus Repair, Lumbar Discectomy x2, Insertion of spinal stimula) - Psycho Social/Smoking Cessation Hx Smoking History: Never smoked Hx Alcohol Use: No Drug/Substance Use Hx: No Substance Use Type: None Hx Substance Use Treatment: No Review of Systems - Review of Systems Able to Perform ROS?: Yes Is the patient limited Sinhala proficient: No Constitutional: No: Chills, Fever Respiratory: No: Cough, Shortness of Breath Cardiac (ROS): No: Chest Pain, Palpitations ABD/GI: No: Diarrhea, Nausea, Vomiting : No: Burning, Dysuria Musculoskeletal: Yes: Joint Pain, Joint Swelling, Other (drainage from surgical site to L hip) Integumentary: No: Rash Neurological: No: Headache, Numbness, Paresthesia All Other Systems: Reviewed and Negative *Physical Exam - Vital Signs Last Vital Signs Temp Pulse Resp BP Pulse Ox 97.8 F 88 17 144/88 100 05/25/19 09:52 05/25/19 09:52 05/25/19 09:52 05/25/19 09:52 05/25/19 09:52 - Physical Exam General Appearance: Yes: Nourished, Appropriately Dressed, Apparent Distress, Mild Distress HEENT: positive: EOMI, Normal Voice Neck: positive: Supple Respiratory/Chest: positive: Lungs Clear, Normal Breath Sounds. negative: Respiratory Distress Cardiovascular: positive: Regular Rhythm, Regular Rate Gastrointestinal/Abdominal: positive: Soft. negative: Guarding, Rebound, Tenderness Musculoskeletal: positive: Normal Inspection Extremity: positive: Other (L hip incision intact with serosanguinous drainage from the distal end of the incision, very mild surrounding erythema, no warmth, +fluctuance, no induration). negative: Pedal Edema, Swelling, Calf Tenderness Integumentary: negative: Erythema, Rash Neurologic: positive: Fully Oriented, Normal Mood/Affect ED Treatment Course - LABORATORY CBC & Chemistry Diagram: 05/25/19 10:07 05/25/19 10:07 Medical Decision Making - Medical Decision Making 05/25/19 10:14 a/p: 58yo male s/p L hip replacement with drainage from the hip -pt states he called Dr. Fountain and spoke with the PA this am who recommended he come to the ER -drainage soaked his bed last night, soaking through ABD pads and paper towels -pt denies f/c -very mild surrounding erythema without warmth, no induration -poss superficial abscess vs post op seroma -very mild ttp -labs and cultures ordered -will discuss with orthopedics- call placed to Dr. Fountain -pain control -will monitor and reassess 05/25/19 10:22 case discussed with Dimitris (PA for dr. fountain) - requests ESR, CRP, wound culture will be in to see the patient in about an hour 05/25/19 11:27 xray without acute findings ortho pa at the bedside 05/25/19 11:37 Dimitris the PA has opened and drained the distal end of the incision- drained out a hematoma if no elevated wbc and labs dc on augmentin and if elevated with start iv abx 05/25/19 12:02 no elevated wbc dimitris agrees with dc to home he is prescribing abx will follow up on Monday with Dr. Fountain in the office. Discharge - Discharge Information Problems reviewed: Yes Clinical Impression/Diagnosis: Postoperative wound hematoma Condition: Stable Disposition: HOME - Admission No - Additional Discharge Information Prescriptions: Amoxicillin/Potassium Clav [Augmentin 875-125 Tablet] 1 each PO BID #20 tablet - Follow up/Referral Referrals: Slim Fountain MD [Staff Physician] - Agustin Bonds [Primary Care Provider] - - Patient Discharge Instructions Patient Printed Discharge Instructions: DI for Hematoma (Bruise) Additional Instructions: Please take all antibiotics as prescribed. Please go to the orthopedist appointment on monday as discussed. Please return to the ED with any further concerns or complaints. - Post Discharge Activity
[2019-05-25] MEDS ORDERED: morphine CARPU-JECT 4 MG/1 ML DISP.SYRIN IVPUSH ONE (10:02)
[2019-05-25] MEDS ORDERED: SODIUM CHLORIDE 0.9% 1000 ML INFUS.BAG IV ONE (10:02)
[2019-05-25] MEDS ORDERED: morphine SULFATE 4 MG/ML VIAL ONE (10:13)
[2019-05-25] MEDS ORDERED: KETOROLAC TROMETHAMINE 15 MG/ML VIAL ONE (10:48)
[2019-05-25] MEDS ORDERED: KETOROLAC TROMETHAMINE 15 MG/ML VIAL IVPUSH ONE (10:59)
[2019-05-25 11:36] LABS: BASO % 0.2 % (0-2.0); EOS % 0.2 % (0-4.5); HEMATOCRIT 36.4 % (35.4-49); HEMOGLOBIN 11.5 GM/dl (11.7-16.9); LYMPH % 8.9 % (8-40); MCH 26.1 pg (25.7-33.7); MCHC 31.5 g/dl (32.0-35.9); MEAN CELL VOLUME 82.8 fl (80-96); MEAN PLT VOLUME 7.9 fl (7.5-11.1); MONO % 5.5 % (3.8-10.2); NEUT % 85.2 % (42.8-82.8); PLATELET COUNT 417 K/MM3 (134-434); RDW 13.5 % (11.9-15.9); WHITE BLOOD COUNT 8.9 K/mm3 (4.0-10.8)
[2019-05-25 11:46] LABS: ALBUMIN 2.8 g/dl (3.4-5.0); BILIRUBIN,TOTAL 0.4 mg/dl (0.2-1); CALCIUM 8.3 mg/dl (8.5-10); CREATININE 0.7 mg/dl (0.55-1.3); POTASSIUM 3.9 mmol/L (3.5-5.1); TOT PROT 6.5 g/dl (6.4-8.2)
[2019-05-25 11:49] LABS: INR 1.32 (0.82-1.09); PROTHROMBIN TIME (PATIENT) 14.7 SEC (10.2-13.0)
--- NOTE | 2019-05-25 11:49 | CON.ORTH ---
Consult Reason for Consultation:: left hip drainage s/p thr - Past Medical History Cardio/Vascular: Yes: HTN Musculoskeletal: Yes: Osteoarthritis - Past Surgical History Past Surgical History: Yes: Joint Replacement - Alcohol/Substance Use Hx Alcohol Use: No - Smoking History Smoking history: Never smoked Home Medications - Allergies Allergies/Adverse Reactions: Allergies Allergy/AdvReac Type Severity Reaction Status Date / Time No Known Allergies Allergy Verified 05/25/19 09:52 - Home Medications Home Medications: Ambulatory Orders Metoprolol Succinate [Toprol Xl] 100 mg PO HS 09/07/16 Naloxegol Oxalate [Movantik] 25 mg PO DAILY 09/07/16 traZODone HCL [Trazodone HCl] 100 mg PO HS 09/07/16 Oxycodone HCl 30 mg PO ASDIR 04/15/19 Oxycodone HCl/Acetaminophen [Percocet 10-325 mg Tablet] 1 each PO Q6H #40 tablet MDD 4 05/01/19 Physical Exam for Ortho Vital Signs: Vital Signs Temperature 97.8 F 05/25/19 09:52 Pulse Rate 88 05/25/19 09:52 Respiratory Rate 17 05/25/19 09:52 Blood Pressure 144/88 05/25/19 09:52 O2 Sat by Pulse Oximetry (%) 100 05/25/19 09:52 Labs: CBC, BMP 05/25/19 10:07 - Lower Extremity Hip: Yes: Left, Pain, Swelling, Other (no drainage or pus, erythema on distal end of incision, slight serosanginous drainage, good rom of hip, calf, soft, nt , nvi) Imaging - Results X-ray: Image Reviewed Assessment/Plan 58yo male s/p L hip replacement presents ambulatory with a cane for eval of drainage from the L hip. Pt is s/p about 4 weeks from a L hip replacement for osteoarthritis. Last seen by Dr. Fountain on Monday and was told to follow up again Monday. When he went to the office yesterday it was closed. Pt states his L hip has been draining serosanguinous fluid since last Monday. No abx. No f/c. No cp/sob. No abd pain. Pt states pain is 9/10 to the L hip. Very mild redness to the distal incision. No wound dehiscence. Pt denies n/v/d. No dysuria. Hx of a staph infection to the knee in . Pt denies all other complaints. Takes Oxycontin 30mg for the pain- took it this AM. Pt has been afebrile with no fever , chills, n/v, CP. sob. Xrays are neg, WBC 8.5. a/p s/p left thr with stitch abscess Removed superficial stitch from incision- no pus Sterile pressure dressing was applied Pt is afebrile with normal WBC ok to d/c home with PO Augmentin Pt to follow-up on Monday with Dr. Fountain d/w Dr. Fountain
[2019-05-25] MEDS ORDERED: AMOX TR/POT CLAV 875MG/125MG TABLETS (FP) PO ONE (12:04)
[2019-05-25] MEDS ORDERED: AMOX TR/POT CLAV 875MG/125MG TABLETS (FP) ONE (12:05)
== END 2019-05-25 12:24 | disposition home or self-care (01) ==
LOC: FER 09:51
PROC: 3E0333Z Introduction of Anti-inflammatory into Peripheral Vein, Percutaneous Approach (ICD-10-PCS; principal; 2019-05-25)
PROC: 3E033NZ Introduction of Analgesics, Hypnotics, Sedatives into Peripheral Vein, Percutaneous Approach (ICD-10-PCS; 2019-05-25)
PROC: 3E013GC Introduction of Other Therapeutic Substance into Subcutaneous Tissue, Percutaneous Approach (ICD-10-PCS; 2019-05-25)
DX: L76.32 Postprocedural hematoma of skin and subcutaneous tissue following other procedure (principal); Y83.8 Other surgical procedures as the cause of abnormal reaction of the patient, or of later complication, without mention of misadventure at the time of the procedure; Y92.9 Unspecified place or not applicable; I10 Essential (primary) hypertension; Z96.642 Presence of left artificial hip joint
CPT/HCPCS: 36415; 73523-TC-FY; 80053; 85025; 85610; 85651; 85730; 86140; 87040; 87070; 87186; 87205; 96374; 96375; 99283-25; J7030

== ENCOUNTER 2019-05-27 11:26 | Inpatient (IN) | payer OTHER ==
[2019-05-27 11:43] VITALS: BMI 31.4
[2019-05-27] MEDS ORDERED: morphine CARPU-JECT 4 MG/1 ML DISP.SYRIN IVPUSH ONE ×2 (12:13→13:27)
--- NOTE | 2019-05-27 12:13 | PDOC ---
Attending Attestation - Resident Resident Name: LoisSaLora - ED Attending Attestation I have performed the following: I have examined & evaluated the patient, The case was reviewed & discussed with the resident, I agree w/resident's findings & plan, Exceptions are as noted - HPI HPI: 05/27/19 12:36 58y M hx of recent L hip replacement in [facility] who presents with increased wound discharge, went to [place] ED 2 days ago and was seen by PA, went to ortho today who sent pt in for revision due to concern for infection. pt denies any fever/chills, but ntoes incerased pain and discharge from his leg. No oral intake since last night exam: L hip wound - distal edge of hip incision noted for wound dehicience with drainage of slightly opaque/tannish discharge - no signficaint erythema/ induration noted. anticipate admission to OR for revision/washou will obtain preop labs/workup per Ortho - defer abx here - Physicial Exam PE: 05/31/19 10:51 See above - Medical Decision Making 05/31/19 10:51 See above
[2019-05-27] MEDS ORDERED: morphine SULFATE 4 MG/ML VIAL ONE (12:18)
--- NOTE | 2019-05-27 12:32 | PDOC ---
History of Present Illness - General Chief Complaint: Wound Stated Complaint: SENT BY DOCTOR Time Seen by Provider: 05/27/19 12:06 History Source: Patient Exam Limitations: No Limitations - History of Present Illness Initial Comments: 05/27/19 12:30 89y M with PMH of HTN presenting to ED for L hip replacement washout Patient has a L THR around 1 month ago and has been draining since. He saw his orthopedist and was told to come the ER to be admitted. Endorses pain in the L hip. Denies fever, chills, numbness/tingling, chest pain, sob. Drainage is clear PMD: Gurpreet PMH: see hpi PSH: see hpi Meds: see med rec Allergies: nkda Social: denies Past History - Past Medical History Allergies/Adverse Reactions: Allergies Allergy/AdvReac Type Severity Reaction Status Date / Time No Known Allergies Allergy Verified 05/27/19 11:38 Home Medications: Ambulatory Orders Metoprolol Succinate [Toprol Xl] 100 mg PO HS 09/07/16 Naloxegol Oxalate [Movantik] 25 mg PO DAILY 09/07/16 traZODone HCL [Trazodone HCl] 100 mg PO HS 09/07/16 Oxycodone HCl 30 mg PO ASDIR 04/15/19 Amox-Tr/K Cl [Augmentin - 875Mg Tablet] 1 tab PO BID #20 tablet 05/25/19 Amoxicillin/Potassium Clav [Augmentin 875-125 Tablet] 1 each PO BID #20 tablet 05/25/19 Anemia: No Asthma: No Cancer: No Cardiac Disorders: No CVA: No COPD: No CHF: No Dementia: No Diabetes: No GI Disorders: No Disorders: No HTN: Yes Hypercholesterolemia: No Liver Disease: No Seizures: No Thyroid Disease: No - Surgical History Abdominal Surgery: Yes (Umbilical Hernia Repair) Appendectomy: No Cardiac Surgery: No Cholecystectomy: No Lung Surgery: No Neurologic Surgery: Yes (Lumbar Discectomy x2) Orthopedic Surgery: Yes (Right Kne Meniscus Repair, Lumbar Discectomy x2, Insertion of spinal stimula) - Psycho Social/Smoking Cessation Hx Smoking History: Never smoked Hx Alcohol Use: No Drug/Substance Use Hx: No Substance Use Type: None Hx Substance Use Treatment: No Review of Systems - Review of Systems Constitutional: No: Symptoms Reported HEENTM: No: Symptoms Reported Respiratory: No: Symptoms reported Cardiac (ROS): No: Symptoms Reported ABD/GI: No: Symptoms Reported : No: Symptoms Reported Musculoskeletal: Yes: See HPI Integumentary: No: Symptoms Reported Neurological: No: Symptoms reported *Physical Exam - Vital Signs Last Vital Signs Temp Pulse Resp BP Pulse Ox 97.7 F 73 18 124/79 100 05/27/19 11:40 05/27/19 11:40 05/27/19 11:40 05/27/19 11:40 05/27/19 11:40 - Physical Exam General Appearance: Yes: Nourished, Appropriately Dressed. No: Apparent Distress HEENT: positive: EOMI, KELLEE, Normal ENT Inspection Neck: positive: Trachea midline, Supple. negative: Lymphadenopathy (R), Lymphadenopathy (L) Respiratory/Chest: positive: Lungs Clear, Normal Breath Sounds. negative: Crackles, Rales, Rhonchi, Stridor, Wheezing Cardiovascular: positive: Regular Rhythm, Regular Rate, S1, S2. negative: Edema , JVD, Murmur Vascular Pulses: Dorsalis-Pedis (R): 2+, Doralis-Pedis (L): 2+ Gastrointestinal/Abdominal: positive: Normal Bowel Sounds, Soft. negative: Tender Musculoskeletal: negative: CVA Tenderness Extremity: positive: Normal Capillary Refill, Other (L hip with clear drainage at surgical site. no fluctuance). negative: Swelling, Calf Tenderness, Erythema Integumentary: positive: Normal Color, Dry, Warm Neurologic: positive: registered diet technician II-XII NML intact, Fully Oriented, Alert, Normal Mood/ Affect, Normal Response, Motor Strength 5/5 ED Treatment Course - LABORATORY CBC & Chemistry Diagram: 05/27/19 12:45 05/27/19 12:45 - RADIOLOGY Radiology Studies Ordered: Category Date Time Status CHEST X-RAY PORTABLE* [RAD] Stat Radiology 05/27/19 12:08 Taken - Medications Given in the ED: ED Medications Discontinued Medications Generic Name Dose Route Start Last Admin Trade Name Freq PRN Reason Stop Dose Admin Morphine Sulfate 4 mg 05/27/19 12:13 05/27/19 12:15 Morphine Injection - IVPUSH 05/27/19 12:14 4 mg ONCE ONE Administration Medical Decision Making - Medical Decision Making 05/27/19 13:30 58y M s/p L THR presenting for washout. Per Dr. Fountain, no abx until after cultures are obtained. Will draw preop labs, pain control. low suspicion for sepsis at this time given normal vitals and no systemic signs of infection. will admit to hospitalist. 05/27/19 13:31 ekg: nsr at 67 bpm. normal intervals, normal axis. no alejandra or depressions. CXR: no acute pathology Discharge - Discharge Information Problems reviewed: Yes Clinical Impression/Diagnosis: S/P hip replacement Qualifiers: Laterality: left Qualified Code(s): Z96.642 - Presence of left artificial hip joint Infected prosthesis of left hip Qualifiers: Encounter type: initial encounter Qualified Code(s): T84.52XA - Infection and inflammatory reaction due to internal left hip prosthesis, initial encounter Condition: Stable - Admission Yes - Follow up/Referral - Patient Discharge Instructions - Post Discharge Activity
[2019-05-27 13:07] LABS: BASO % 0.6 % (0-2.0); HEMATOCRIT 35.4 % (35.4-49); HEMOGLOBIN 11.5 GM/dL (11.7-16.9); LYMPH % 18.9 % (8-40); MCH 26.3 pg (25.7-33.7); MCHC 32.5 g/dl (32.0-35.9); MEAN PLT VOLUME 7.1 fl (7.5-11.1); NEUT % 72.5 % (42.8-82.8); PLATELET COUNT 461 K/MM3 (134-434); RBC 4.37 M/mm3 (4.00-5.60); RDW 14.1 % (11.9-15.9); WHITE BLOOD COUNT 6.9 K/mm3 (4.0-10.0)
[2019-05-27 13:21] LABS: INR 1.08 (0.83-1.09); PROTHROMBIN TIME (PATIENT) 12.8 SEC (9.7-13.0)
[2019-05-27 13:24] LABS: ACTIVATED PTT 37.9 SECONDS (25.2-36.5)
[2019-05-27] MEDS ORDERED: MORPHINE SULFATE 2 MG/ML VIAL ONE (13:26)
[2019-05-27 13:30] LABS: ALBUMIN 2.8 g/dl (3.4-5.0); BILIRUBIN,TOTAL 0.2 mg/dL (0.2-1); BLOOD UREA NITROGEN 12.7 mg/dL (7-18); CREATININE 0.7 mg/dL (0.55-1.3); POTASSIUM 4.7 mmol/L (3.5-5.1); TOT PROT 7.4 g/dl (6.4-8.2)
[2019-05-27] MEDS ORDERED: PROPOFOL 20 ML ONE ×2 (15:14→16:23)
[2019-05-27] MEDS ORDERED: SUCCINYLCHOLINE CHLORIDE 200 MG/10 ML SYRINGE ONE ×2 (15:14→16:24)
[2019-05-27] MEDS ORDERED: MIDAZOLAM HCL 2 MG/2 ML SINGLE DOSE VIAL ONE ×2 (15:14→16:15)
[2019-05-27] MEDS ORDERED: BUPIVACAINE HCL/PF 0.5% (5 MG/ML) 30 ML VIAL IJ ONE (15:28)
[2019-05-27] MEDS ORDERED: HYDROmorphone HCL CARPU-JECT 2 MG/1 ML DISP.SYRIN IVPUSH ONE (15:34)
[2019-05-27] MEDS ORDERED: HYDROmorphone HCl 2 MG/ML VIAL ONE (15:37)
--- NOTE | 2019-05-27 15:59 | CONSULT ---
Consult - text type - Consultation Consultation Note: FULL CONSULT DICTATED IMP: INFECTED LEFT HIP REPLACEMENT PLAN: I&d AND POSSIBLE EXCHANGE OF COMPONENTS
[2019-05-27] MEDS ORDERED: LACTATED RINGERS SOLUTION 1,000 ML/1,000 ML INFUS.BAG IV SCH (16:45)
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
[2019-05-27] MEDS ORDERED: ceFAZolin SODIUM 1 GM VIAL IVPB ONE (16:52)
[2019-05-27] MEDS ORDERED: BACITRACIN 50,000 UNITS VIAL TP ONE (17:10)
[2019-05-27] MEDS ORDERED: VANCOMYCIN HCL 1,500 MG in DEXTROSE 5%-WATER - 500 ML IVPB ONE ×2 (17:30→18:15)
[2019-05-27] MEDS ORDERED: MAGNESIUM HYDROX 2400MG/30ML ORAL SUSPENSION 30 ML CUP PO PRN ×2 (17:34→17:56)
[2019-05-27] MEDS ORDERED: ONDANSETRON 4 MG/2 ML VIAL IVPUSH PRN ×4 (17:34→17:56)
[2019-05-27] MEDS ORDERED: MAG HYDROX/AL HYDROX/SIMETH 30 ML UNIT-DOSE CUP PO PRN ×2 (17:34→17:56)
--- NOTE | 2019-05-27 17:34 | OP ---
Operative Note - Note: Operative Date: 05/27/19 Pre-Operative Diagnosis: INFECTED LEFT HIP REPLACEMENT Operation: I&D L HIP AND HEAD EXCHANGE Post-Operative Diagnosis: Same as Pre-op Surgeon: Slim Fountain Burrer Marker Axle: Anuj Eaton Anesthesia: General, Spinal Specimens Removed: FEMORAL HEAD COMPONENT AND FIBROUS SOFT TISSUE Estimated Blood Loss (mls): 100 Operative Report Dictated: Yes
[2019-05-27] MEDS ORDERED: PROMETHAZINE HCL 25 MG/1 ML VIAL IVPUSH PRN ×2 (17:37→17:56)
[2019-05-27] MEDS ORDERED: oxyCODONE HCL 5 MG TABLET PO PRN ×2 (17:37→17:56)
[2019-05-27] MEDS ORDERED: HYDROmorphone *PCA* 10MG/50ML DISP.SYRIN ONE (17:41)
--- NOTE | 2019-05-27 17:41 | SURG ---
Surgery Bus Dispatcher Interstate Note Bus Dispatcher Interstate: Anuj Eaton PA-C Date of Service: 05/27/19 Diagnosis: INFECTED LEFT HIP REPLACEMENT Procedure: I&D L HIP AND Femoral HEAD EXCHANGE I was present for the entirety of the operative procedure. For further detail, please refer to operative report. Visit type - Case Type Case Type: ED Admission - Emergency Emergency Visit: Yes ED Registration Date: 05/27/19 Care time: The patient presented to the Emergency Department on the above date and was hospitalized for further evaluation of their emergent condition. - New patient This patient is new to me today: Yes Date on this admission: 05/27/19 - Critical Care Critical Care patient: No
[2019-05-27] MEDS ORDERED: MEPERIDINE HCL CARPU-JECT 25 MG/1 ML DISP.SYRIN IVPUSH ONE (17:45)
[2019-05-27] MEDS ORDERED: LACTATED RINGERS SOLUTION 1,000 ML IV SCH ×2 (17:45→17:56)
[2019-05-27] MEDS ORDERED: MEPERIDINE HCL 25 MG/ML VIAL ONE (17:48)
[2019-05-27] MEDS ORDERED: CEFAZOLIN 2 GM in DEXTROSE 5%-WATER - 50 ML IVPB SCH (18:00)
[2019-05-27] MEDS ORDERED: PIPERACILLIN/TAZOB 3.375 GM 3.375 GM in DEXTROSE 5%-WATER - 50 ML IVPB SCH (18:00)
[2019-05-27] MEDS: LACTATED RINGERS SOLUTION 1,000 ML/1,000 ML INFUS.BAG IV SCH (18:30)
[2019-05-27] MEDS: HYDROmorphone *PCA* 10MG/50ML DISP.SYRIN PCA SCH ×2 (18:30→21:30)
[2019-05-27] MEDS: PIPERACILLIN/TAZOB 3.375 GM 3.375 GM in DEXTROSE 5%-WATER - 50 ML IVPB SCH (19:00)
[2019-05-27] MEDS: KETOROLAC TROMETHAMINE 30 MG/1 ML VIAL IVPUSH PRN (21:24)
[2019-05-27] MEDS: GABAPENTIN 300 MG CAPSULE (FP) PO SCH (21:29)
[2019-05-27] MEDS: SENNOSIDES/DOCUSATE COMBO (SENNA PLUS) TABLET (UD) PO SCH (21:29)
[2019-05-27] MEDS ORDERED: SENNOSIDES/DOCUSATE COMBO (SENNA PLUS) TABLET (UD) PO SCH (22:00)
[2019-05-27] MEDS ORDERED: GABAPENTIN 300 MG CAPSULE (FP) PO SCH (22:00)
[2019-05-28] MEDS ORDERED: PIPERACILLIN/TAZOBACTAM 3.375 GM VIAL IVPB ONE ×3 (01:20→17:37)
[2019-05-28] MEDS ORDERED: DEXTROSE 5%-WATER - 50 ML IVPB ONE ×3 (01:20→17:37)
[2019-05-28] MEDS: PIPERACILLIN/TAZOB 3.375 GM 3.375 GM in DEXTROSE 5%-WATER - 50 ML IVPB SCH ×3 (01:30→20:07)
[2019-05-28] MEDS: KETOROLAC TROMETHAMINE 30 MG/1 ML VIAL IVPUSH PRN (05:38)
[2019-05-28] MEDS: HYDROmorphone *PCA* 10MG/50ML DISP.SYRIN PCA SCH ×2 (05:51→20:30)
[2019-05-28] MEDS ORDERED: ASPIRIN 325 MG TABLET PO SCH (08:00)
[2019-05-28 08:29] LABS: BASO % 0.6 % (0-2.0); EOS % 1.4 % (0-4.5); HEMATOCRIT 30.2 % (35.4-49); LYMPH % 21.4 % (8-40); MCH 26.2 pg (25.7-33.7); MCHC 32.9 g/dl (32.0-35.9); MEAN CELL VOLUME 79.6 fl (80-96); MEAN PLT VOLUME 6.9 fl (7.5-11.1); NEUT % 69.6 % (42.8-82.8); PLATELET COUNT 387 K/MM3 (134-434); RDW 14.2 % (11.9-15.9); WHITE BLOOD COUNT 5.9 K/mm3 (4.0-10.0)
[2019-05-28 08:50] LABS: BLOOD UREA NITROGEN 11.2 mg/dL (7-18); CALCIUM 8.5 mg/dL (8.5-10.1); CREATININE 0.7 mg/dL (0.55-1.3); POTASSIUM 4.4 mmol/L (3.5-5.1)
[2019-05-28] MEDS ORDERED: PIPERACILLIN/TAZOB 3.375 GM 3.375 GM in DEXTROSE 5%-WATER - 50 ML IVPB SCH (10:00)
[2019-05-28] MEDS ORDERED: PANTOPRAZOLE 40 MG TABLET (FP) PO SCH (10:00)
[2019-05-28] MEDS ORDERED: MULTIVITAMINS (DAILY MVI) TABLET (FP) PO SCH (10:00)
--- NOTE | 2019-05-28 10:04 | PN ---
Progress Note (short form) - Note Progress Note: 58M s/p left hip I&D under spinal +GA. now on DENTAL EQUIPMENT INSTALLER AND SERVICER pain well controlled. to cont DENTAL EQUIPMENT INSTALLER AND SERVICER. no comps.
[2019-05-28] MEDS: ASPIRIN 325 MG TABLET PO SCH (10:37)
[2019-05-28] MEDS: SENNOSIDES/DOCUSATE COMBO (SENNA PLUS) TABLET (UD) PO SCH ×2 (10:38→21:18)
[2019-05-28] MEDS: MULTIVITAMINS (DAILY MVI) TABLET (FP) PO SCH (10:38)
[2019-05-28] MEDS: PANTOPRAZOLE 40 MG TABLET (FP) PO SCH (10:38)
[2019-05-28] MEDS: GABAPENTIN 300 MG CAPSULE (FP) PO SCH ×2 (10:38→21:19)
--- NOTE | 2019-05-28 13:00 | PN ---
Progress Note (short form) - Note Progress Note: Hospitalist Medicine Resting in bed, has not yet been OOB. Still w/ davol drain. No BM yet Vitals 05/28/19 05/28/19 05:26 06:57 Temperature 98.2 F Pulse Rate 80 Respiratory 20 Rate Blood Pressure 131/72 Physical Exam general: resting in bed, in NAD HEENT: NCAT, supple cardio: S1, S2 RRR. no r/m/g pulm: CTA b/l abdomen: obese, nontender, nondistended LE: 2+ pulses, trace edema MSK: +L hip gauze c/d/i. +davol drain neuro: lead technical architect 2-12 grossly intact Laboratory Tests 05/28/19 05/28/19 08:06 08:06 WBC 5.9 Hgb 10.0 L Hct 30.2 L Plt Count 387 Sodium 140 Potassium 4.4 Chloride 106 Carbon Dioxide 28 BUN 11.2 Creatinine 0.7 Est GFR (CKD-EPI)NonAf 104.02 Random Glucose 122 H Microbiology 05/27/19: L hip, bx tissue: pending Imaging 05/27/19: CXR: negative Assessment/Plan 58 y/o M with PMH HTN, spinal stimulator, knee sx w/ past staph infection, who presents for L hip I&D, as well as femoral head exchange. #s/p L hip I&D, femoral head exchange- PO day 1 -c/w EXPELLER WORKER pump for pain control -on neurontin, roxicodone q4h PRN -f/u intra-op cx (tissue and wound) -started on vanc, zosyn (Day 2) -bowel regimen per sx: on senna, colace can add miralax if needed -on IVF, asa for dvt ppx -restarted diet -f/u ID recs -PT, IS -dressing changes, davol drain d/c per sx, abductor pillow -Sx: Dr. Fountain -ID: Dr. Alves #HTN -c/w metoprolol 100mg qd #chronic pain -hold trazodone; can be sedating. as pt is post op #F/E/N IV LR 100 cc/hr continue to follow lytes reg diet #PPX DVT: on asa per sx GI: protonix #Dispo monitoring on med-surg recs per ID, sx <Virginia Rivers - Last Filed: 05/28/19 15:37> - Note Progress Note: Seen and examined; please refer to resident note for further historical information. I personally reviewed all arrington historical and PE findings as well as reviewed all diagnostics, imaging, and vitals. Discussed at length with the resident team and indicated consulting services. Continues to require inpatient treatment and monitoring for their acute medical issues. Pain is controlled wthout any red flag postoperative issues. 10 sys ROS done and negative aside from HPI VS, labs, imaging reviewed NAD AAO resting in bed NC AT EOMI PERRLA HR wnl, s1/2+ NT ND +BS CN2-12 wnl, no fnd Postop dressing c/d/i A/P: Agree with above plan Pending operative team final recs, speciation and recs from IID stable He is curious about culture history. Family asked many inquiries about this treatment. Ultimately this doesn't affect his postop course as very very remote but can check records for completeness sake. No issues with HTN Monitoring for postop fevers Agree with rest of plan per reesident not. Full Code <Rajinder Torres - Last Filed: 05/31/19 05:40>
--- NOTE | 2019-05-28 13:22 | PN ---
Progress Note (short form) - Note Progress Note: AVSS PATIENT FEELING MUCH BETTER HEMOVAC INITIALLY HAD 100CC IN A SHIFT NOW DOWN TO 40CCS CALF SOFT AND NT NVI DRESSING DRY AND INTACT WBC=WNL MICRO FINAL NOT BACK BUT LAB JUST CALLED AND SAID RESULTS ARE POSITIVE FOR MRSA PLAN: CONTINUE IV PIP AND VANCO UNTIL ID CONSULT GIVES DEFINITIVE ABX RECOMMENDATION CONTACT ISOLATION. WILL FOLLOW
--- NOTE | 2019-05-28 14:57 | PN ---
Progress Note (short form) - Note Progress Note: ID CONSULT DICTATED S/P REVISION, INFECTED THR + WOUND C/S MRSA AWAIT OPERATIVE C/S EMPIRIC VANCOMYCIN/ ZOSYN
[2019-05-28] MEDS: LACTATED RINGERS SOLUTION 1,000 ML/1,000 ML INFUS.BAG IV SCH ×2 (16:14→17:56)
[2019-05-28] MEDS: VANCOMYCIN 1,250 MG in DEXTROSE 5%-WATER - 250 ML IVPB SCH (17:55)
[2019-05-28] MEDS ORDERED: VANCOMYCIN HCL 1,500 MG in DEXTROSE 5%-WATER - 500 ML IVPB SCH (18:00)
[2019-05-28] MEDS ORDERED: diphenhydrAMINE HCL 25 MG CAPSULE (FP) PO ONE (19:37)
[2019-05-28] MEDS: traZODone HCL 100 MG TABLET (FP) PO SCH (21:19)
[2019-05-29] MEDS ORDERED: DEXTROSE 5%-WATER - 50 ML IVPB ONE ×3 (02:14→17:33)
[2019-05-29] MEDS ORDERED: PIPERACILLIN/TAZOBACTAM 3.375 GM VIAL IVPB ONE ×3 (02:14→17:33)
[2019-05-29] MEDS ORDERED: PT OWN MED DRAWER 7, Y5N ONE (02:16)
[2019-05-29] MEDS: PIPERACILLIN/TAZOB 3.375 GM 3.375 GM in DEXTROSE 5%-WATER - 50 ML IVPB SCH ×3 (02:52→17:34)
[2019-05-29] MEDS: LACTATED RINGERS SOLUTION 1,000 ML/1,000 ML INFUS.BAG IV SCH (05:01)
[2019-05-29] MEDS: VANCOMYCIN 1,250 MG in DEXTROSE 5%-WATER - 250 ML IVPB SCH ×2 (05:01→15:09)
[2019-05-29] MEDS: HYDROmorphone *PCA* 10MG/50ML DISP.SYRIN PCA SCH ×5 (05:41→22:55)
[2019-05-29] MEDS ORDERED: diphenhydrAMINE HCL 25 MG CAPSULE (FP) PO ONE (05:44)
[2019-05-29 08:16] LABS: BASO % 0.7 % (0-2.0); EOS % 2.6 % (0-4.5); HEMATOCRIT 29.7 % (35.4-49); HEMOGLOBIN 9.7 GM/dL (11.7-16.9); LYMPH % 24.1 % (8-40); MCH 26.1 pg (25.7-33.7); MCHC 32.5 g/dl (32.0-35.9); MEAN CELL VOLUME 80.1 fl (80-96); MEAN PLT VOLUME 6.8 fl (7.5-11.1); MONO % 10.8 % (3.8-10.2); NEUT % 61.8 % (42.8-82.8); PLATELET COUNT 376 K/MM3 (134-434); RBC 3.71 M/mm3 (4.00-5.60); RDW 13.9 % (11.9-15.9); WHITE BLOOD COUNT 6.4 K/mm3 (4.0-10.0)
[2019-05-29 08:17] LABS: BLOOD UREA NITROGEN 6.8 mg/dL (7-18); CALCIUM 8.7 mg/dL (8.5-10.1); CREATININE 0.7 mg/dL (0.55-1.3); MAGNESIUM 2.2 mg/dL (1.8-2.4); PHOSPHOROUS 4.4 mg/dL (2.5-4.9); POTASSIUM 4.4 mmol/L (3.5-5.1)
[2019-05-29] MEDS: ASPIRIN 325 MG TABLET PO SCH (08:54)
[2019-05-29] MEDS: SENNOSIDES/DOCUSATE COMBO (SENNA PLUS) TABLET (UD) PO SCH ×2 (08:59→21:11)
[2019-05-29] MEDS: GABAPENTIN 300 MG CAPSULE (FP) PO SCH ×2 (08:59→21:12)
[2019-05-29] MEDS: PANTOPRAZOLE 40 MG TABLET (FP) PO SCH (08:59)
[2019-05-29] MEDS: MULTIVITAMINS (DAILY MVI) TABLET (FP) PO SCH (08:59)
[2019-05-29] MEDS: diphenhydrAMINE HCL 25 MG CAPSULE (FP) PO PRN ×2 (10:14→18:07)
--- NOTE | 2019-05-29 10:25 | PN ---
Progress Note (short form) - Note Progress Note: AVSS COMFORTABLE FINAL SENSITIVITY NOT BACK YET CONTINUE ABX UNTIL FINAL REPORT IN FROM MICRO HEMOVAC WITH MINIMAL DRAINAGE-->DCED
--- NOTE | 2019-05-29 10:42 | PN ---
Progress Note (short form) - Note Progress Note: Hospitalist Medicine C/o intermittent itching. No angioedema sx. Not yet OOB this AM. Davol drain for d/c this AM per sx Vitals 05/29/19 05/29/19 05:24 09:41 Temperature 98 F Pulse Rate 76 Respiratory 18 Rate Blood Pressure 131/76 O2 Sat by Pulse 95 Oximetry (%) Physical Exam general: resting in bed, in NAD HEENT: NCAT, supple cardio: S1, S2 RRR. no r/m/g pulm: CTA b/l abdomen: obese, nontender, nondistended LE: 2+ pulses, trace edema MSK: +davol drain . able to wiggle toes neuro: machine fixer 2-12 grossly intact, sensation preserved Laboratory Tests 05/29/19 05/29/19 07:30 07:30 WBC 6.4 Hgb 9.7 L Hct 29.7 L Plt Count 376 Sodium 138 Potassium 4.4 Chloride 104 Carbon Dioxide 30 BUN 6.8 L Creatinine 0.7 Random Glucose 107 H Microbiology 05/27/19 17:00 Hip - Left Gram Stain - Final 05/27/19 17:00 Biopsy Tissue Gram Stain - Final 05/27/19 17:00 Hip - Left Wound Culture - Preliminary Staphylococcus Latex Coag Pos 05/27/19 17:00 Biopsy Tissue Tissue Culture - Preliminary Staphylococcus Latex Coag Pos Imaging 05/27/19: CXR: negative Assessment/Plan 58 y/o M with PMH HTN, spinal stimulator, knee sx w/ past staph infection, who presents for L hip I&D, as well as femoral head exchange. #s/p L hip I&D, femoral head exchange- PO day 2 -c/w CHANNEL WORKER pump for pain control -on neurontin -intra-op cx: staph latex coag pos - awaiting c+S -started on vanc, zosyn (Day 3) -benadryl PRN for pruritis. unclear if whether 2/2 vanco . no angioedema sx -bowel regimen per sx: on senna, colace can add miralax if needed -have d/c IVF -asa for dvt ppx per sx -PT, IS -dressing changes, abductor pillow -davol drain for d/c, per sx -Sx: Dr. Fountain -ID: Dr. Alves #HTN -c/w metoprolol 100mg qd #chronic pain -c/w trazodone #F/E/N have d/c IVF, tolerating diet continue to follow lytes reg diet #PPX DVT: on asa per sx GI: protonix #Dispo monitoring on med-surg recs per ID, sx <Virginia Rivers - Last Filed: 05/29/19 14:17> - Note Progress Note: Seen and examined; please refer to resident note for further historical information. I personally reviewed all arrington historical and PE findings as well as reviewed all diagnostics, imaging, and vitals. Discussed at length with the resident team and indicated consulting services. Continues to require inpatient treatment and monitoring for their acute medical issues. Pain is controlled wthout any red flag postoperative issues. He tells me that he is not habing adeqwuate pain control but his CHANNEL WORKER USE doesnt reflect as much. Will look. Still no BM Family preseent and updated. 10 sys ROS done and negative aside from HPI VS, labs, imaging reviewed NAD AAO resting in bed NC AT EOMI PERRLA HR wnl, s1/2+ NT ND +BS CN2-12 wnl, no fnd Postop dressing c/d/i; ROM intact without any emergent neurovascular issues. A/P: Agree with above plan Pending operative team final recs, speciation and recs from IID stable He is curious about culture history. Family asked many inquiries about this treatment. Ultimately this doesn't affect his postop course as very very remote but can check records for completeness sake. No issues with HTN Monitoring for postop fevers No new issues; MSSA likely pending final SN. Agree with rest of plan per reesident note. Full Code <Rajinder Torres - Last Filed: 05/31/19 05:42>
[2019-05-29] MEDS: traZODone HCL 100 MG TABLET (FP) PO SCH (21:12)
[2019-05-29] MEDS: SODIUM CHLORIDE 1,000 ML IV SCH ×2 (23:18→23:21)
[2019-05-30] MEDS ORDERED: PIPERACILLIN/TAZOBACTAM 3.375 GM VIAL IVPB ONE ×2 (01:06→08:47)
[2019-05-30] MEDS ORDERED: DEXTROSE 5%-WATER - 50 ML IVPB ONE ×2 (01:06→08:47)
[2019-05-30] MEDS: PIPERACILLIN/TAZOB 3.375 GM 3.375 GM in DEXTROSE 5%-WATER - 50 ML IVPB SCH ×2 (01:52→09:17)
[2019-05-30] MEDS: VANCOMYCIN 1,250 MG in DEXTROSE 5%-WATER - 250 ML IVPB SCH ×2 (04:07→14:59)
[2019-05-30 08:41] LABS: BASO % 0.4 % (0-2.0); EOS % 2.7 % (0-4.5); HEMATOCRIT 31.2 % (35.4-49); HEMOGLOBIN 10.3 GM/dL (11.7-16.9); LYMPH % 19.9 % (8-40); MCH 26.3 pg (25.7-33.7); MCHC 33.1 g/dl (32.0-35.9); MEAN CELL VOLUME 79.6 fl (80-96); MEAN PLT VOLUME 6.9 fl (7.5-11.1); MONO % 5.8 % (3.8-10.2); NEUT % 71.2 % (42.8-82.8); PLATELET COUNT 431 K/MM3 (134-434); RBC 3.92 M/mm3 (4.00-5.60); RDW 14.3 % (11.9-15.9); WHITE BLOOD COUNT 7.4 K/mm3 (4.0-10.0)
[2019-05-30] MEDS: ASPIRIN 325 MG TABLET PO SCH (08:52)
[2019-05-30 09:14] LABS: BLOOD UREA NITROGEN 11.9 mg/dL (7-18); CALCIUM 8.3 mg/dL (8.5-10.1); CREATININE 0.6 mg/dL (0.55-1.3); MAGNESIUM 2.2 mg/dL (1.8-2.4); PHOSPHOROUS 3.9 mg/dL (2.5-4.9); POTASSIUM 4.1 mmol/L (3.5-5.1)
[2019-05-30] MEDS: GABAPENTIN 300 MG CAPSULE (FP) PO SCH (09:17)
[2019-05-30] MEDS: MULTIVITAMINS (DAILY MVI) TABLET (FP) PO SCH (09:18)
[2019-05-30] MEDS: SODIUM CHLORIDE 1,000 ML IV SCH (09:18)
[2019-05-30] MEDS: diphenhydrAMINE HCL 25 MG CAPSULE (FP) PO PRN ×2 (09:18→18:25)
[2019-05-30] MEDS: PANTOPRAZOLE 40 MG TABLET (FP) PO SCH (09:18)
[2019-05-30] MEDS: SENNOSIDES/DOCUSATE COMBO (SENNA PLUS) TABLET (UD) PO SCH ×2 (09:19→21:13)
[2019-05-30] MEDS: HYDROmorphone *PCA* 10MG/50ML DISP.SYRIN PCA SCH ×3 (09:48→21:13)
--- NOTE | 2019-05-30 13:49 | PN ---
Progress Note (short form) - Note Progress Note: Hospitalist Medicine Still c/o intermittent itching, otherwise has been OOB in chair. Vitals 05/30/19 05/30/19 09:48 10:00 Pulse Rate 78 Respiratory 18 Rate Blood Pressure 118/66 O2 Sat by Pulse 96 Oximetry (%) Physical Exam general: OOB in chair. in NAD HEENT: NCAT, supple cardio: S1, S2 RRR. no r/m/g pulm: CTA b/l abdomen: obese, nontender, nondistended LE: 2+ pulses, trace edema MSK: able to ambulate, mildly antalgic. neuro: drill runner 2-12 grossly intact, sensation preserved Laboratory Tests 05/30/19 05/30/19 08:00 08:00 WBC 7.4 Hgb 10.3 L Hct 31.2 L Plt Count 431 Sodium 139 Potassium 4.1 Chloride 104 Carbon Dioxide 29 BUN 11.9 Creatinine 0.6 Calcium 8.3 L Phosphorus 3.9 Magnesium 2.2 Microbiology 05/27/19 17:00 Hip - Left Gram Stain - Final 05/27/19 17:00 Hip - Left Wound Culture - Final Staphylococcus Aureus 05/27/19 17:00 Biopsy Tissue Gram Stain - Final 05/27/19 17:00 Biopsy Tissue Anaerobic Culture - Final Staphylococcus Aureus NO ANAEROBES WERE ISOLATED Imaging 05/27/19: CXR: negative Assessment/Plan 58 y/o M with PMH HTN, spinal stimulator, knee sx w/ past staph infection, who presents for L hip I&D, as well as femoral head exchange. #s/p L hip I&D, femoral head exchange- PO day 3 -c/w MINE INSPECTOR FEDERAL pump for pain control; will d/c based on sx recs -on neurontin -intra-op cx: MSSA -on vanc, zosyn (05/28); can deescalate based on c+s -benadryl PRN for pruritis. unclear if whether 2/2 vanco . no angioedema sx -bowel regimen per sx: on senna, colace can add miralax if needed -asa for dvt ppx per sx -PT, IS -dressing changes, abductor pillow -Sx: Dr. Fountain -ID: Dr. Alves #HTN -c/w metoprolol 100mg qd #chronic pain -c/w trazodone #F/E/N off IVF continue to follow lytes reg diet #PPX DVT: on asa per sx GI: protonix #Dispo monitoring on med-surg dispo per sx. <Shay Riversavna - Last Filed: 05/30/19 13:50> - Note Progress Note: Seen and examined; please refer to resident note for further historical information. I personally reviewed all arrington historical and PE findings as well as reviewed all diagnostics, imaging, and vitals. Discussed at length with the resident team and indicated consulting services. Continues to require inpatient treatment and monitoring for their acute medical issues. Pain is controlled wthout any red flag postoperative issues. He tells me that he is not habing adeqwuate pain control but his MINE INSPECTOR FEDERAL USE doesnt reflect as much. Will look. Still no BM Family preseent and updated again Will likely be able to deescalate and plan for DC pending ID clearance. Will need to discuss planng with IR for PICC 10 sys ROS done and negative aside from HPI VS, labs, imaging reviewed NAD AAO resting in bed NC AT EOMI PERRLA HR wnl, s1/2+ NT ND +BS CN2-12 wnl, no fnd Postop dressing c/d/i; ROM intact without any emergent neurovascular issues. A/P: Agree with above plan Pending operative team final recs, speciation and recs from IID stable He is curious about culture history. Family asked many inquiries about this treatment. Ultimately this doesn't affect his postop course as very very remote but can check records for completeness sake. No issues with HTN Monitoring for postop fevers DC planning; deescalatopn per ID He was not using the pain button enough on the MINE INSPECTOR FEDERAL pump; i counseled him and he veerbalized understanding. Agree with rest of plan per reesident note. Full Code <Rajinder Torres - Last Filed: 05/31/19 05:43>
--- NOTE | 2019-05-30 14:15 | PN ---
Progress Note (short form) - Note Progress Note: Anesthesia POD#1 S/P I&D Left Hip under GA and HIGH MAN VSS,orals are started. no N/V A/P Pain is not fully controlled. Continue the HIGH MAN Oral oxycodone 10 mg ordered. Bria Lugo MD,
--- NOTE | 2019-05-30 14:55 | PN ---
Progress Note (short form) - Note Progress Note: AVSS COMFORTABLE BANDAGES CHANGED. INCISION CLEAN AND DRY CALF SOFT AND NT IMP: DOING WELL PLAN: ABX PER ID, WILL FOLLOW
[2019-05-30] MEDS: oxyCODONE HCL 5 MG TABLET PO PRN ×2 (15:27→19:51)
--- NOTE | 2019-05-30 15:32 | PN ---
Progress Note, Physician History of Present Illness: NO C/O HIP PAIN AT REST NON FEVER/ CHILLS OPERATIVE C/S GROWING MSSA WOUND C/S MRSA - Current Medication List Current Medications: Active Medications Al Hydroxide/Mg Hydroxide (Mylanta Oral Suspension -) 30 ml PO Q4H PRN PRN Reason: DYSPEPSIA Aspirin (Asa -) 325 mg PO DAILY@0800 [facility] Last Admin: 05/30/19 08:52 Dose: 325 mg Diphenhydramine HCl (Benadryl -) 25 mg PO Q6H PRN PRN Reason: FOR ITCHING Last Admin: 05/30/19 09:18 Dose: 25 mg Fentanyl (Sublimaze Injection -) 50 mcg IVPUSH Q5M PRN PRN Reason: PAIN-PACU ORDER X 4 DOSES ONLY Gabapentin (Neurontin -) 300 mg PO BID [facility] Stop: 05/30/19 21:59 Last Admin: 05/30/19 09:17 Dose: 300 mg Hydromorphone HCl (Hydromorphone 10 Mg/50 Ml-Ns) 10 mg DRIVEMATIC MACHINE OPERATOR DRIVEMATIC MACHINE OPERATOR [facility]; Protocol Stop: 05/30/19 23:44 Last Admin: 05/30/19 09:48 Dose: 10 mg Vancomycin HCl 1,250 mg/ (Dextrose) 250 mls @ 166.667 mls/hr IVPB Q12H [facility]; Protocol Last Admin: 05/30/19 14:59 Dose: 166.667 mls/hr Sodium Chloride (Normal Saline -) 1,000 mls @ 42 mls/hr IV ASDIR [facility] Last Admin: 05/30/19 09:18 Dose: 42 mls/hr Ketorolac Tromethamine (Toradol Injection -) 30 mg IVPUSH Q6H PRN PRN Reason: PAIN LEVEL 6-10 Stop: 06/01/19 20:50 Last Admin: 05/28/19 05:38 Dose: 30 mg Magnesium Hydroxide (Milk Of Magnesia -) 30 ml PO PRN PRN PRN Reason: CONSTIPATION Metoprolol Succinate (Toprol Xl -) 100 mg PO HS [facility] Last Admin: 05/29/19 21:11 Dose: 100 mg Multivitamins/Minerals/Vitamin C (Tab-A-Vit -) 1 tab PO DAILY [facility] Last Admin: 05/30/19 09:18 Dose: 1 tab Ondansetron HCl (Zofran Injection) 4 mg IVPUSH Q6H PRN PRN Reason: NAUSEA AND/OR VOMITING Ondansetron HCl (Zofran Injection) 4 mg IVPUSH Q6H PRN PRN Reason: NAUSEA Oxycodone HCl (Roxicodone -) 10 mg PO Q4H PRN PRN Reason: PAIN LEVEL 1-5 Stop: 05/31/19 14:09 Pantoprazole Sodium (Protonix -) 40 mg PO DAILY [facility] Last Admin: 05/30/19 09:18 Dose: 40 mg Promethazine HCl (Phenergan Injection -) 12.5 mg IVPUSH Q6H PRN PRN Reason: NAUSEA-FOR RESCUE AFTER 15 MIN Senna/Docusate Sodium (Pericolace -) 2 tablet PO BID [facility] Last Admin: 05/30/19 09:19 Dose: 2 tablet Trazodone HCl (Desyrel -) 100 mg PO HS [facility] Last Admin: 05/29/19 21:12 Dose: 100 mg - Objective Vital Signs: Vital Signs Temperature 97.5 F L 05/30/19 15:09 Pulse Rate 81 05/30/19 15:09 Respiratory Rate 20 05/30/19 15:09 Blood Pressure 124/80 05/30/19 15:09 O2 Sat by Pulse Oximetry (%) 97 05/30/19 14:11 Constitutional: Yes: No Distress Cardiovascular: Yes: Regular Rate and Rhythm, S1, S2 Respiratory: Yes: CTA Bilaterally Gastrointestinal: Yes: Normal Bowel Sounds, Soft. No: Tenderness Extremities: Yes: Other (L HIP WOUND NO ERYTHEMA/ DRAINAGE) Labs: CBC, BMP 05/30/19 08:00 05/30/19 08:00 INR, PTT INR 1.08 (0.83-1.09) 05/27/19 12:45 Assessment/Plan S/P REVISION, INFECTED L THR WILL CONTINUE VANCOMYCIN D/C ZOSYN PICC FOR OUTPATIENT ANTIBIOTICS
--- NOTE | 2019-05-30 16:23 | PATH ---
Surgical Pathology Report Patient Name: JULIA LEIGH [facility]. Rec. #: [id number] /Age/Gender: 1960 (Age: 58) / M Account: [id number] Location: [address] [place] [address]/[facility] Taken: 05/27/2019 Received: 05/28/2019 Reported: 05/30/2019 Physicians: Slim Fountain M.D. Specimen(s) Received HARDWARE Clinical History Left hip infection Final Diagnosis HARDWARE, HIP, LEFT, REMOVAL: SURGICAL HARDWARE. MACROSCOPIC DIAGNOSIS. Electronically Signed Deja Aguirre M.D. Gross Description Received fresh labeled "removed hardware from left hip," is a 3.4 x 3.4 x 3.0 cm portion of hardware, consistent with a prosthetic femoral head. No soft tissue is present. No sections are submitted, gross only. /05/28/2019 saudi05/28/2019
[2019-05-30 18:43] VITALS: TEMP 97.8
[2019-05-30] MEDS: traZODone HCL 100 MG TABLET (FP) PO SCH (21:12)
[2019-05-31] MEDS ORDERED: PT OWN MED DRAWER 7, Y5N ONE ×2 (02:22→14:52)
[2019-05-31] MEDS: VANCOMYCIN 1,250 MG in DEXTROSE 5%-WATER - 250 ML IVPB SCH ×2 (02:30→14:53)
[2019-05-31] MEDS: SODIUM CHLORIDE 1,000 ML IV SCH (02:41)
[2019-05-31] MEDS: oxyCODONE HCL 5 MG TABLET PO PRN ×3 (02:42→11:32)
[2019-05-31] MEDS: diphenhydrAMINE HCL 25 MG CAPSULE (FP) PO PRN (02:42)
[2019-05-31] MEDS ORDERED: HYDROmorphone *PCA* 10MG/50ML DISP.SYRIN ONE (03:55)
[2019-05-31] MEDS: HYDROmorphone *PCA* 10MG/50ML DISP.SYRIN PCA SCH (04:03)
[2019-05-31 05:10] VITALS: BP 120/70; PULSE 72
[2019-05-31 09:19] LABS: HEMATOCRIT 32.6 % (35.4-49); HEMOGLOBIN 10.7 GM/dL (11.7-16.9); MCH 26.1 pg (25.7-33.7); MCHC 32.7 g/dl (32.0-35.9); MEAN PLT VOLUME 6.9 fl (7.5-11.1); PLATELET COUNT 523 K/MM3 (134-434); RBC 4.08 M/mm3 (4.00-5.60); RDW 14.1 % (11.9-15.9); WHITE BLOOD COUNT 8.5 K/mm3 (4.0-10.0)
[2019-05-31 09:32] LABS: INR 1.18 (0.83-1.09)
[2019-05-31 09:34] LABS: BLOOD UREA NITROGEN 9.2 mg/dL (7-18); CALCIUM 8.8 mg/dL (8.5-10.1); CREATININE 0.7 mg/dL (0.55-1.3); MAGNESIUM 2.2 mg/dL (1.8-2.4); PHOSPHOROUS 3.8 mg/dL (2.5-4.9); POTASSIUM 4.3 mmol/L (3.5-5.1)
[2019-05-31] MEDS: ASPIRIN 325 MG TABLET PO SCH (10:36)
[2019-05-31] MEDS: MULTIVITAMINS (DAILY MVI) TABLET (FP) PO SCH (10:36)
[2019-05-31] MEDS: PANTOPRAZOLE 40 MG TABLET (FP) PO SCH (10:36)
[2019-05-31] MEDS: SENNOSIDES/DOCUSATE COMBO (SENNA PLUS) TABLET (UD) PO SCH (10:36)
--- NOTE | 2019-05-31 12:37 | PN ---
Progress Note (short form) - Note Progress Note: DR MARTÍNEZ'S NOTE APPRECIATED IMP: ORTHOPEDICALLY STABLE PLAN: DC TO HOME ON IV ABX DIRECTED BY ID,F/U MY OFFICE X 1 WEEK
[2019-05-31] MEDS ORDERED: oxyCODONE HCL 5 MG TABLET PO ONE (13:08)
--- NOTE | 2019-05-31 13:46 | PN ---
Progress Note (short form) - Note Progress Note: Anesthesiologist INDUSTRIAL TRAINING SPECIALIST round Pat D/C home today. INDUSTRIAL TRAINING SPECIALIST D/c'd. Signed off.
--- NOTE | 2019-05-31 15:51 | PN ---
Progress Note, Physician History of Present Illness: C/O HIP PAIN AT REST ABLE TO BEAR WT NOFEVER/ CHILLS OPERATIVE C/S MSSA WOUND C/S MRSA - Current Medication List Current Medications: Active Medications Al Hydroxide/Mg Hydroxide (Mylanta Oral Suspension -) 30 ml PO Q4H PRN PRN Reason: DYSPEPSIA Aspirin (Asa -) 325 mg PO DAILY@0800 [facility] Last Admin: 05/31/19 10:36 Dose: 325 mg Diphenhydramine HCl (Benadryl -) 25 mg PO Q6H PRN PRN Reason: FOR ITCHING Last Admin: 05/31/19 02:42 Dose: 25 mg Fentanyl (Sublimaze Injection -) 50 mcg IVPUSH Q5M PRN PRN Reason: PAIN-PACU ORDER X 4 DOSES ONLY Vancomycin HCl 1,250 mg/ (Dextrose) 250 mls @ 166.667 mls/hr IVPB Q12H [facility]; Protocol Last Admin: 05/31/19 14:53 Dose: 166.667 mls/hr Sodium Chloride (Normal Saline -) 1,000 mls @ 42 mls/hr IV ASDIR [facility] Last Admin: 05/31/19 02:41 Dose: 42 mls/hr Ketorolac Tromethamine (Toradol Injection -) 30 mg IVPUSH Q6H PRN PRN Reason: PAIN LEVEL 6-10 Stop: 06/01/19 20:50 Last Admin: 05/28/19 05:38 Dose: 30 mg Magnesium Hydroxide (Milk Of Magnesia -) 30 ml PO PRN PRN PRN Reason: CONSTIPATION Metoprolol Succinate (Toprol Xl -) 100 mg PO [facility] Last Admin: 05/30/19 21:13 Dose: 100 mg Multivitamins/Minerals/Vitamin C (Tab-A-Vit -) 1 tab PO DAILY [facility] Last Admin: 05/31/19 10:36 Dose: 1 tab Ondansetron HCl (Zofran Injection) 4 mg IVPUSH Q6H PRN PRN Reason: NAUSEA AND/OR VOMITING Ondansetron HCl (Zofran Injection) 4 mg IVPUSH Q6H PRN PRN Reason: NAUSEA Pantoprazole Sodium (Protonix -) 40 mg PO DAILY [facility] Last Admin: 05/31/19 10:36 Dose: 40 mg Promethazine HCl (Phenergan Injection -) 12.5 mg IVPUSH Q6H PRN PRN Reason: NAUSEA-FOR RESCUE AFTER 15 MIN Senna/Docusate Sodium (Pericolace -) 2 tablet PO BID [facility] Last Admin: 05/31/19 10:36 Dose: 2 tablet Trazodone HCl (Desyrel -) 100 mg PO HS [facility] Last Admin: 05/30/19 21:12 Dose: 100 mg - Objective Vital Signs: Vital Signs Temperature 97.8 F 05/31/19 05:09 Pulse Rate 72 05/31/19 05:09 Respiratory Rate 18 05/31/19 09:00 Blood Pressure 120/70 05/31/19 05:09 O2 Sat by Pulse Oximetry (%) 95 05/31/19 09:00 Constitutional: Yes: No Distress Cardiovascular: Yes: Regular Rate and Rhythm, S1, S2 Respiratory: Yes: CTA Bilaterally Gastrointestinal: Yes: Normal Bowel Sounds, Soft. No: Tenderness Extremities: Yes: Other (L HIPO WOUND NO ERYTHEMA/ DRAINAGE) Labs: CBC, BMP 05/31/19 08:40 05/31/19 08:40 INR, PTT INR 1.18 (0.83-1.09) H 05/31/19 08:40 Assessment/Plan S/P REVISION, INFECTED L THR PICC FOR OUTPATIENT ANTIBIOTICS VANCOMYCIN 1250MG IVPB Q12H + RIFAMPIN 300MG PO BID COMPLETE 6 WEEK COURSE OUTPATIENT FOLLLOW UP PT TO FOLLOW UP WITH ME 2WEEKS
[2019-05-31] MEDS ORDERED: RIFAMPIN 300 MG CAPSULE PO SCH (16:00)
[2019-05-31] MEDS: KETOROLAC TROMETHAMINE 30 MG/1 ML VIAL IVPUSH PRN (16:20)
--- NOTE | 2019-05-31 18:04 | DS ---
Physical Exam: SUBJECTIVE: Patient seen and examined at bedside. Improved pain. Able to ambulate. For d/c home on vanco 1250MG IVPB Q12H, rifampin 300mg PO BID via PICC line OBJECTIVE: Vital Signs Period Temp Pulse Resp BP Sys/Khan Pulse Ox Last 24 Hr 97.8 F-97.8 F 72-85 18-20 117-121/69-76 95-95 Physical Exam general: OOB in chair. in NAD HEENT: NCAT, supple cardio: S1, S2 RRR. no r/m/g pulm: CTA b/l abdomen: obese, nontender, nondistended LE: 2+ pulses, trace edema MSK: able to ambulate, mildly antalgic. 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, sensation preserved LABS Laboratory Results - last 24 hr 05/31/19 05/31/19 05/31/19 08:40 08:40 08:40 WBC 8.5 RBC 4.08 Hgb 10.7 L Hct 32.6 L MCV 80.0 MCH 26.1 MCHC 32.7 RDW 14.1 Plt Count 523 H D MPV 6.9 L PT with INR 14.00 H INR 1.18 H Sodium 136 Potassium 4.3 Chloride 102 Carbon Dioxide 28 Anion Gap 6 L BUN 9.2 Creatinine 0.7 Est GFR (CKD-EPI)AfAm 120.56 Est GFR (CKD-EPI)NonAf 104.02 Random Glucose 135 H Calcium 8.8 Phosphorus 3.8 Magnesium 2.2 Vancomycin Pre-Dose Laboratory Tests 05/27/19 05/28/19 05/29/19 12:45 08:06 07:30 WBC 6.9 5.9 6.4 Hgb 11.5 L 10.0 L 9.7 L Hct 35.4 30.2 L 29.7 L Plt Count 461 H 387 376 PT with INR Vancomycin Pre-Dose 05/30/19 05/31/19 05/31/19 08:00 08:40 08:40 WBC 7.4 8.5 Hgb 10.3 L 10.7 L Hct 31.2 L 32.6 L Plt Count 431 523 H D PT with INR INR Sodium 136 Potassium 4.3 Chloride 102 Carbon Dioxide 28 BUN 9.2 Creatinine 0.7 Random Glucose 135 H Vancomycin Pre-Dose 05/31/19 05/31/19 08:40 15:30 WBC Plt Count PT with INR 14.00 H INR 1.18 H Creatinine Random Glucose Vancomycin Pre-Dose 8.6 L 05/27/19 12:45 PT with INR 12.80 INR 1.08 PTT (Actin FS) 37.9 H 05/27/19 05/28/19 05/29/19 12:45 08:06 07:30 Sodium 137 140 138 Potassium 4.7 4.4 4.4 Chloride 100 106 104 BUN 12.7 11.2 6.8 L Creatinine 0.7 0.7 0.7 Total Bilirubin 0.2 AST 31 ALT 55 Alkaline Phosphatase 95 Total Protein 7.4 Albumin 2.8 L 05/30/19 08:00 Sodium 139 Potassium 4.1 Chloride 104 BUN 11.9 Creatinine 0.6 Alkaline Phosphatase 05/31/19 15:30 Vancomycin Pre-Dose 8.6 L Microbiology 05/27/19 17:00 Hip - Left Gram Stain - Final 05/27/19 17:00 Hip - Left Wound Culture - Final Staphylococcus Aureus 05/27/19 17:00 Biopsy Tissue Gram Stain - Final 05/27/19 17:00 Biopsy Tissue Anaerobic Culture - Final Staphylococcus Aureus NO ANAEROBES WERE ISOLATED Operative Date: 05/27/19 Pre-Operative Diagnosis: INFECTED LEFT HIP REPLACEMENT Operation: I&D L HIP AND HEAD EXCHANGE Post-Operative Diagnosis: Same as Pre-op Surgeon: Slim Fountain Route Delivery Manager: Anuj Eaton Anesthesia: General, Spinal Specimens Removed: FEMORAL HEAD COMPONENT AND FIBROUS SOFT TISSUE Estimated Blood Loss (mls): 100 Imaging 05/27/19: CXR: negative HOSPITAL COURSE: Date of Admission:05/27/19 Date of Discharge: 05/31/19 58 y/o M with PMH HTN, spinal stimulator, knee sx w/ past staph infection, who presents for L hip I&D, as well as femoral head exchange. Surgery done by Dr. Fountain on 05/27/2019. #s/p L hip I&D, femoral head exchange- PO day4 -TOE FORMER STITCHDOWNS pump was d/c. pt had been rx roxicodone 30mg TID from previous, to continue PRN for next 12 days until sees PCP, or surgeon -intra-op cx: MSSA -was on vanc, zosyn (05/28); then deescalated to vanco. sending home on vanc 1250mg q12h IVPB through PICC for 6 weeks, along with rifampin 300mg BID per ID recs. -can use hydroxyzine PRN for pruritis; d/w pt -bowel regimen per sx: on senna, colace -asa for dvt ppx per sx . to continue on d/c -PT, IS -dressing changes, abductor pillow -f/u with surgery and ID (Dr. Alves ) - 1 week #HTN -c/w metoprolol 100mg qd #chronic pain -c/w trazodone Minutes to complete discharge: 56 Discharge Summary Problems reviewed: Yes Reason For Visit: STATUS POST HIP REPLACEMENT Current Active Problems Infected prosthesis of left hip (Acute) S/P hip replacement (Acute) Condition: Stable - Instructions Diet, Activity, Other Instructions: You were in the hospital because you had an infected hip replacement. You underwent an incision and drainage, and left femoral head exchange on 05/27/19 with your orthopedic surgeon, Dr. Fountain. You were treated with IV antibiotics. You are being discharged home. You will go home with a PICC line (peripheral IV line) to receive the antibiotic vancomycin 1250mg q12h IVPB (every twelve hours- twice a day) for 6 weeks. And rifampin 300mg twice a day (oral antibiotic). You will need to have the vancomycin level checked, as well as weekly CBC ( complete blood count) and BMP (basic metabolic panel) labs checked. Medications -Per surgery, please continue to take your home medication of roxicodone 30mg TID (three times a day) as needed for pain. -you may take hydroxyzine (1 pill) every 6 hours as needed for itching. This has been changed from benadryl, as we discussed -Continue to take senna/colace (bowel regimen to avoid constipation)- 2 pills, twice a day during this time. -Continue to take protonix 40mg (acid suppressant ) for your stomach - 1 pill daily -You have also been started on aspirin 325mg tablet (to prevent clots in your legs post-op) by the surgery team: take one pill daily. Avoid taking NSAIDs with this as this can cause increased risk of bleeding (avoid toradol, alleve, naproxen, etc.) -Please continue your other home medications (including metoprolol and trazodone ). Post-op care You will continue with dressing changes and abductor pillow at home. Other recommendations will be made by your surgeon. Continue with physical therapy. Follow up appointments Please follow up with the following physicians upon your discharge: -your primary care doctor within 1 week -an infectious disease specialist, Dr. Alves who saw you in the hospital - 1 week. He will monitor your progress on the IV antibiotics. -your orthopedic surgeon, Dr. Fountain - 1 week Referrals: Cayden Alves MD [Staff Physician] - 1 Week Slim Fountain MD [Staff Physician] - 1 Week Agustin Bonds [Primary Care Provider] - 1 Week Disposition: HOME - Home Medications Comprehensive Discharge Medication List: Ambulatory Orders Metoprolol Succinate [Toprol Xl] 100 mg PO HS 09/07/16 traZODone HCL [Trazodone HCl] 100 mg PO HS 09/07/16 Oxycodone HCl 30 mg PO ASDIR 04/15/19 Aspirin [ASA -] 325 mg PO DAILY@0800 #30 tablet 05/31/19 Hydroxyzine HCl 10 mg PO Q6H #30 tablet 05/31/19 Pantoprazole Sodium [Protonix -] 40 mg PO DAILY #30 tablet.ec 05/31/19 Rifampin [Rifadin] 300 mg PO BID #84 capsule 05/31/19 Sennosides/Docusate Sodium [Pericolace -] 2 tablet PO BID #60 tablet 05/31/19 Vancomycin 1,250 mg IVPB Q12H vial 05/31/19 traZODone HCL [Desyrel -] 100 mg PO HS tablet 05/31/19 This patient is new to me today: No Emergency Visit: No Critical Care patient: No - Discharge Referral Referred to [facility] No
--- NOTE | 2019-05-31 18:26 | PN ---
Teaching Attending Note Name of Resident: Virginia Rivers ATTENDING PHYSICIAN STATEMENT I saw and evaluated the patient. I reviewed the resident's note and discussed the case with the resident. I agree with the resident's findings and plan as documented. 58 y/o M with PMH HTN, spinal stimulator, knee sx w/ past staph infection, who presents for L hip I&D, as well as femoral head exchange. Surgery done by Dr. Fountain on 05/27/2019, wound culture showing MRSA and MSSA. Patient for PICC line placement and to be DC home with home infusions of IV antibiotics for 6 weeks as per ID recommendations. Vital Signs - 24 hr 05/30/19 05/30/19 05/31/19 21:00 21:15 05:09 Temperature 97.8 F Pulse Rate 85 72 Respiratory 18 18 18 Rate Blood Pressure 117/76 120/70 O2 Sat by Pulse 95 Oximetry (%) 05/31/19 09:00 Temperature Pulse Rate Respiratory 18 Rate Blood Pressure O2 Sat by Pulse 95 Oximetry (%) PE general: OOB in chair. in NAD, laughing, speaking in full sentences HEENT: NCAT, supple cardio: S1, S2 RRR. no r/m/g pulm: CTA b/l abdomen: soft, non-tender, non-distended, no guarding LE: 2+ pulses, trace edema MSK: Able to ambulate and bare weight on both hips. 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 Microbiology 05/27/19 17:00 Biopsy Tissue Gram Stain - Final 05/27/19 17:00 Biopsy Tissue Tissue Culture - Final Staphylococcus Aureus 05/27/19 17:00 Biopsy Tissue Anaerobic Culture - Final NO ANAEROBES WERE ISOLATED 05/27/19 17:00 Hip - Left Gram Stain - Final 05/27/19 17:00 Hip - Left Wound Culture - Final Staphylococcus Aureus Laboratory Results - last 24 hr 05/31/19 05/31/19 05/31/19 08:40 08:40 08:40 WBC 8.5 RBC 4.08 Hgb 10.7 L Hct 32.6 L MCV 80.0 MCH 26.1 MCHC 32.7 RDW 14.1 Plt Count 523 H D MPV 6.9 L PT with INR 14.00 H INR 1.18 H Sodium 136 Potassium 4.3 Chloride 102 Carbon Dioxide 28 Anion Gap 6 L BUN 9.2 Creatinine 0.7 Est GFR (CKD-EPI)AfAm 120.56 Est GFR (CKD-EPI)NonAf 104.02 Random Glucose 135 H Calcium 8.8 Phosphorus 3.8 Magnesium 2.2 Vancomycin Pre-Dose 05/31/19 15:30 WBC RBC Hgb Hct MCV MCH MCHC RDW Plt Count MPV PT with INR INR Sodium Potassium Chloride Carbon Dioxide Anion Gap BUN Creatinine Est GFR (CKD-EPI)AfAm Est GFR (CKD-EPI)NonAf Random Glucose Calcium Phosphorus Magnesium Vancomycin Pre-Dose 8.6 L Current Medications Generic Name Dose Route Start Last Admin Trade Name Freq PRN Reason Stop Dose Admin Al Hydroxide/Mg Hydroxide 30 ml 05/27/19 17:56 Mylanta Oral Suspension - PO Q4H PRN DYSPEPSIA Aspirin 325 mg 05/28/19 08:00 05/31/19 10:36 Asa - PO 325 mg DAILY@0800 [facility] Administration Diphenhydramine HCl 25 mg 05/29/19 09:28 05/31/19 02:42 Benadryl - PO 25 mg Q6H PRN Administration FOR ITCHING Fentanyl 50 mcg 05/27/19 17:56 Sublimaze Injection - IVPUSH Q5M PRN PAIN-PACU ORDER X 4 DOSES ONLY Vancomycin HCl 1,250 mg/ 250 mls @ 166.667 mls/hr 05/28/19 15:30 05/31/19 14: 53 Dextrose IVPB 166.667 mls/hr Q12H [facility]LE Administration Protocol Sodium Chloride 1,000 mls @ 42 mls/hr 05/29/19 22:45 05/31/19 02:41 Normal Saline - IV 42 mls/hr ASDIR [facility] Administration Ketorolac Tromethamine 30 mg 05/27/19 20:51 05/31/19 16:20 Toradol Injection - IVPUSH 06/01/19 20:50 30 mg Q6H PRN Administration PAIN LEVEL 6-10 Magnesium Hydroxide 30 ml 05/27/19 17:56 Milk Of Magnesia - PO PRN PRN CONSTIPATION Metoprolol Succinate 100 mg 05/28/19 22:00 05/30/19 21:13 Toprol Xl - PO 100 mg HS [facility] Administration Multivitamins/Minerals/Vitamin C 1 tab 05/28/19 10:00 05/31/19 10:36 Tab-A-Vit - PO 1 tab DAILY [facility] Administration Ondansetron HCl 4 mg 05/27/19 17:56 Zofran Injection IVPUSH Q6H PRN NAUSEA AND/OR VOMITING Ondansetron HCl 4 mg 05/27/19 17:56 Zofran Injection IVPUSH Q6H PRN NAUSEA Pantoprazole Sodium 40 mg 05/28/19 10:00 05/31/19 10:36 Protonix - PO 40 mg DAILY [facility] Administration Promethazine HCl 12.5 mg 05/27/19 17:56 Phenergan Injection - IVPUSH Q6H PRN NAUSEA-FOR RESCUE AFTER 15 MIN Rifampin 600 mg 05/31/19 16:00 05/31/19 17:31 Rifadin - PO 600 mg DAILY [facility] Administration Senna/Docusate Sodium 2 tablet 05/27/19 22:00 05/31/19 10:36 Pericolace - PO 2 tablet BID [facility] Administration Trazodone HCl 100 mg 05/28/19 22:00 05/30/19 21:12 Desyrel - PO 100 mg HS [facility] Administration A/P: I agree with the residents note and recommend the following. 58 y/o M with PMHx HTN, spinal stimulator, knee sx w/ past staph infection, underwent L hip I&D, as well as femoral head exchange by Dr. Fountain on 2018. Now weight baring, can ambulate. Evaluated by ID and cleared for DC with home IV antibiotics x6 weeks. L hip femoral head exchange -Patient able to ambulate with walker -Follow up with Orthopedics clinic in 1 week -For pain control, reviewed patients [place] [employer] and saw he receives a monthly prescription of Oxycodone HCL 30mg Q8H PRN for pain, last prescription written by Dr. San (informatics analyst in [place]) on 04/26/2019 for 30 day supply (150 tablets). I will discharge patient with Oxycodone HCl 30mg tablet Q12H PRN for severe pain #10 tabs and no refills, this will allow enough time for patient to follow up with his PCP and front end alignment specialist for further pain management needs. -Patient to receive Vancomycin and Rifampin x6 weeks with IV infusions at home as per ID recs, follow up with ID clinic in 2 weeks. Disposition: DC home with rollator walker. Follow up with PCP 1 week, Orthopedics clinic 1 week and ID clinic 2 weeks. Patient instructed if he feels fever, chills or refractory pain to go to ED.
--- NOTE | 2019-05-31 19:00 | OP ---
DATE OF OPERATION: 05/27/2019 PREOPERATIVE DIAGNOSIS: Infected left total hip replacement. POSTOPERATIVE DIAGNOSIS: Infected left total hip replacement. PROCEDURE: Open irrigation and debridement and head exchanged. SURGICAL ATTENDING: Slim Fountain M.D. SKI EDGE PAINTER: Jameel Robbins ANESTHESIA: Spinal and general. CLOSURE: A 36-mm + 2.5 ceramic head, number 1 Prolene for fascia, 2-0 for subcutaneous, anne for skin. ESTIMATED BLOOD LOSS: Approximately 100 mL. COMPLICATIONS: None. CONDITION: To recovery in stable condition. DESCRIPTION OF OPERATIVE PROCEDURE: Patient taken to the operating room on May 27, 2019. Spinal and general anesthesia with administered by the anesthesiologist. Patient was not given Kefzol prior to the case as we wanted good cultures intraoperatively first. The patient was placed in lateral decubitus position with all prominences well padded. The left hip area was prepped and draped in the usual sterile fashion. First, the previous incision from the total hip replacement done 4 weeks ago was utilized with 10-blade down to the level of the fascia. All Vicryls and Monocryls that were accessible were debrided. Once we got to the fascia, a large amount of fluid, cloudy fluid, was evacuated from the hip and cultures were taken from this fluid. Charnley retractors were placed through the fascia. Again, all Vicryl sutures in the fascia were debrided. Hip was pulsed antibiotic irrigated with 3 L of antibiotic irrigation. We got down to the hip joint, and the hip was dislocated. A femoral head was taken off gaining exposure. Anterior posterior retractors were placed around the acetabulum to insure that the acetabular component was in good shape. Fibrous tissue in and around this area was all debrided. Curets were used to remove any fibrous tissue in the region. Some fibrous tissue around the femoral stem opening was also curetted away. We pulse antibiotic irrigated the area copiously as everything was felt to be stable, and there was no necrotic tissue anywhere, and no pockets of purulence. I elected to leave the polyethylene and femoral and acetabular components. The hip was irrigated with copious amounts of irrigation with bacitracin. The trunnion was cleaned and a new 2.5, 3.6-mm head was cold welded. The hip was reduced. Range of motion was found to have excellent stability and external rotation was stable to marked flexion, and 90 degrees flexion was stable to marked adduction, internal rotation. Negative telescoping. Positive hang test. After reducing, it was irrigated further with antibiotic irrigation and dried. Vancomycin powder was placed in the hip joint. The fascia was then closed using number 1 Prolene suture interrupted. A Hemovac drain was placed beneath the fascia exiting distally in the anterolateral region. The subcutaneous was then independently irrigated with copious amounts of antibiotic irrigation and closed with 2-0, and then anne for skin. Sterile pressure dressing was applied. Patient placed in supine position with bilateral SCDs and abduction pillow. Patient awakened from anesthesia and transferred to recovery in stable condition, no complications. Estimated blood loss 100 mL. Megan [id number]
--- NOTE | 2019-05-31 19:00 | CONS ---
DATE OF CONSULTATION: DATE OF DICTATION: 05/28/2019 INFECTIOUS DISEASE CONSULTATION HISTORY OF PRESENT ILLNESS: The patient is a 58-year-old male who is evaluated for an infected left total hip replacement. The patient underwent a left total hip replacement on April 30, 2019. The patient states he did well until approximately 1 week prior to admission. He had increasing left hip pain as well as serous drainage from the left hip incision, and the drainage subsequently became purulent. He was evaluated in the orthopedist's office and was referred admission for debridement. Patient returned to the operating room in May 27, 2019, where an incision and drainage of the left hip was performed with washout and femoral head exchange. A wound culture which was obtained a [facility] on May 25 grew an MRSA. Operative cultures are pending. He denies any associated fever or chills. PAST MEDICAL HISTORY: Positive for osteoarthritis. PAST SURGICAL HISTORY: Status post umbilical hernia repair, lumbar surgery, knee and hip surgery. ALLERGIES: No known allergies. MEDICATION: Aspirin, fentanyl, Neurontin, Dilaudid, Toradol, Demerol, Toprol, oxycodone, vancomycin, Zosyn. SOCIAL HISTORY: He worked in the [employer] and is a nonsmoker, nondrinker. SYSTEMS REVIEW: Neurologic: No loss of consciousness, seizure activity, focal weakness. Cardiac: Negative for chest pain or palpitations. Respiratory: Negative for cough or sputum production. Gastrointestinal: Negative vomiting or diarrhea. Genitourinary: Negative for urinary tract infection. LABORATORY DATA: White count 5.9, hematocrit 30.2, platelets 387, creatinine 0.7. Blood cultures negative. ESR is 89. C-reactive protein 17.3. PHYSICAL EXAMINATION: General: On exam, he is awake supine in bed, in no acute distress. Vital signs: Temperature 98.2, blood pressure 131/72, pulse 80 regular, respirations 20 per minute. HEENT: Sclerae anicteric. Cardiovascular: Heart sounds S1, S2. Lungs: Clear. Abdomen: Soft, nontender. Extremities: A postoperative dressing in place over the left hip. Left lower extremity edema. Negative Homans sign. IMPRESSION: 1. Status post revision infected left total hip replacement postoperative day number 1. 2. Positive wound culture methicillin-resistant Staphylococcus aureus. Await operative cultures. Empiric antibiotic coverage with vancomycin and Zosyn. Will require PICC line and long-term IV antibiotic therapy. Further recommendations pending cultures. Thank you for the kind referral. GERMAN MARTÍNEZ M.D. [id number]
--- NOTE | 2019-05-31 19:00 | CONS ---
ORTHOPAEDIC CONSULTATION [facility] DATE OF CONSULTATION: 05/27/2019 HISTORY: Patient is a 58-year-old male status post left total hip replacement performed by me at [facility] on April 30, 2019. Patient presented to the office today with drainage coming out of the inferior aspect of his wound. He had labs done, which showed a white count of 6.9, but he did have significant drainage coming out of his hip. His ESR, however, also showed an 8.9. C-reactive protein at 17.3. PHYSICAL EXAMINATION: He has a sinus at the inferior aspect of his left hip incision with some significant drainage coming out of the hip. Calf is soft, nontender. No pain with range of motion of his hip. IMPRESSION: Infected left total hip replacement. PLAN: Admitted the patient to the hospital directly through the emergency room. We will take the patient today for an open irrigation and debride and possible polyethylene exchange and head exchange. We will wait to do antibiotics until after we get a good intraoperative culture and then start him on IV antibiotics and get Infectious Disease involved. ISIDRO PIZANO M.D. [id number]
== END 2019-05-31 19:00 | disposition home or self-care (01) | DRG 470 ==
LOC: JER 11:26 → JERBED 12:22 → J6S 20:02
PROVIDERS: ADMIT Hospitalist
PROC: 0SRB03A Replacement of Left Hip Joint with Ceramic Synthetic Substitute, Uncemented, Open Approach (ICD-10-PCS; principal; 2019-05-27 15:30)
PROC: 0SPB04Z Removal of Internal Fixation Device from Left Hip Joint, Open Approach (ICD-10-PCS; 2019-05-27 15:30)
DX: T84.52XA Infection and inflammatory reaction due to internal left hip prosthesis, initial encounter (principal); I10 Essential (primary) hypertension; A49.02 Methicillin resistant Staphylococcus aureus infection, unspecified site; Y83.9 Surgical procedure, unspecified as the cause of abnormal reaction of the patient, or of later complication, without mention of misadventure at the time of the procedure; E66.9 Obesity, unspecified; Z68.31 Body mass index [BMI] 31.0-31.9, adult
CPT/HCPCS: 36415; 36569; 71045-TC-FY; 77001-TC-FY; 80048; 80053; 83735; 84100; 85025; 85027; 85610; 85730; 86850; 86900; 86901; 87070; 87075; 87186; 87205; 94010; 94760; 97116-GP; 97162-GP; 99284-25; C1751; G0480; J7030

== ENCOUNTER 2019-06-07 13:40 | Emergency (ER) | payer OTHER ==
[2019-06-07 13:46] VITALS: BP 148/97; PULSE 95; TEMP 98.3; BMI 31.4
[2019-06-07] MEDS ORDERED: morphine CARPU-JECT 2 MG/1 ML DISP.SYRIN IM ONE (14:26)
[2019-06-07] MEDS ORDERED: morphine CARPU-JECT 4 MG/1 ML DISP.SYRIN IVPUSH ONE (14:54)
[2019-06-07] MEDS ORDERED: morphine SULFATE 4 MG/ML VIAL ONE (14:57)
[2019-06-07 15:09] LABS: RBC 3.44 M/mm3 (4.00-5.60); RDW 13.7 % (11.9-15.9); WHITE BLOOD COUNT 6.8 K/mm3 (4.0-10.8)
[2019-06-07 15:17] LABS: ALBUMIN 2.6 g/dl (3.4-5.0); BILIRUBIN,TOTAL 0.2 mg/dl (0.2-1); CALCIUM 8.2 mg/dl (8.5-10); CREATININE 0.7 mg/dl (0.55-1.3); POTASSIUM 3.9 mmol/L (3.5-5.1); TOT PROT 6.2 g/dl (6.4-8.2)
[2019-06-07 15:18] LABS: HEMATOCRIT 27.9 % (35.4-49); HEMOGLOBIN 9.2 GM/dl (11.7-16.9); LYMPH % 21.3 % (8-40); MCH 26.8 pg (25.7-33.7); MEAN CELL VOLUME 81.2 fl (80-96); MEAN PLT VOLUME 7.1 fl (7.5-11.1); MONO % 5.9 % (3.8-10.2); NEUT % 68.8 % (42.8-82.8); PLATELET COUNT 554 K/MM3 (134-434)
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
== END 2019-06-07 16:35 | disposition home or self-care (01) ==
LOC: FER 13:40
PROC: 3E033NZ Introduction of Analgesics, Hypnotics, Sedatives into Peripheral Vein, Percutaneous Approach (ICD-10-PCS; principal; 2019-06-07)
DX: T81.43XA Infection following a procedure, organ and space surgical site, initial encounter (principal); L08.9 Local infection of the skin and subcutaneous tissue, unspecified; I10 Essential (primary) hypertension; R60.0 Localized edema; Z96.642 Presence of left artificial hip joint; Z79.82 Long term (current) use of aspirin; Z86.14 Personal history of Methicillin resistant Staphylococcus aureus infection
CPT/HCPCS: 36415; 80053; 85025; 93971-TC; 96374; 99283-25

== ENCOUNTER 2019-06-19 15:22 | Emergency (ER) | payer OTHER ==
[2019-06-19 15:36] VITALS: BP 131/68; PULSE 72; TEMP 98.1; BMI 32.9
--- NOTE | 2019-06-19 15:36 | PDOC ---
Rapid Medical Evaluation Time Seen by Provider: 06/19/19 15:25 Medical Evaluation: Allergies Allergy/AdvReac Type Severity Reaction Status Date / Time No Known Allergies Allergy Verified 06/13/19 09:19 06/19/19 15:29 Pt presents for clearance for detox from heroin. Last used this morning. He snorts it. Pt currently has a PICC line in for IV Vanc after having a hip replacement revision surgery. Started heroin after the hip surgery for pain control. Exam: Mildly anxious. AAOx3. No respiratory distress. ambulatory Orders: Labs, EKG Pt to proceed to the ER for evaluation. Discharge Disposition - Diagnosis Desire for detoxification - Referrals - Patient Instructions - Post Discharge Activity
[2019-06-19 17:02] LABS: BASO % 1.1 % (0-2.0); EOS % 12.5 % (0-4.5); HEMATOCRIT 31.6 % (35.4-49); HEMOGLOBIN 10.1 GM/dL (11.7-16.9); LYMPH % 26.3 % (8-40); MCH 25.8 pg (25.7-33.7); MCHC 32.1 g/dl (32.0-35.9); MEAN CELL VOLUME 80.4 fl (80-96); MONO % 5.3 % (3.8-10.2); NEUT % 54.8 % (42.8-82.8); PLATELET COUNT 337 K/MM3 (134-434); RBC 3.93 M/mm3 (4.00-5.60); RDW 15.8 % (11.9-15.9); WHITE BLOOD COUNT 5.7 K/mm3 (4.0-10.0)
[2019-06-19 17:10] LABS: URINE APPEARANCE CLEAR; URINE BILIRUBIN NEGATIVE (NEGATIVE); URINE COLOR DK YELLOW; URINE GLUCOSE (UA) NEGATIVE (NEGATIVE); URINE KETONE NEGATIVE (NEGATIVE); URINE LEUK ESTERASE NEGATIVE (NEGATIVE); URINE NITRITE NEGATIVE (NEGATIVE); URINE PROTEIN NEGATIVE (NEGATIVE); URINE UROBILINOGEN 0.2 mg/dL (0.2-1.0)
[2019-06-19 17:15] LABS: COCAINE, UR NEGATIVE ng/ml (CUTOFF=300); METHADONE, UR NEGATIVE ng/ml (CUTOFF=300); PHENCYCLIDINE,URINE NEGATIVE ng/ml (CUTOFF=25); URINE BARBITURATES NEGATIVE ng/ml (CUTOFF=200); URINE BENZODIAZEPINES NEGATIVE ng/ml (CUTOFF=200)
[2019-06-19 17:28] LABS: OPIATES, URI POSITIVE ng/ml (CUTOFF=300); URINE AMPHETAMINES POSITIVE ng/ml (CUTOFF=500)
[2019-06-19 17:32] LABS: PROTHROMBIN TIME (PATIENT) 11.8 SEC (9.7-13.0)
[2019-06-19 17:36] LABS: ALBUMIN 3.1 g/dl (3.4-5.0); BILIRUBIN,TOTAL 0.2 mg/dL (0.2-1); CALCIUM 8.6 mg/dL (8.5-10.1); CREATININE 0.9 mg/dL (0.55-1.3); POTASSIUM 4.5 mmol/L (3.5-5.1); TOT PROT 7.5 g/dl (6.4-8.2)
--- NOTE | 2019-06-19 18:34 | PDOC ---
History of Present Illness - General Chief Complaint: Pain, Acute Stated Complaint: REHAB CLEARANCE/PAIN MANAGEMENT Time Seen by Provider: 06/19/19 15:25 History Source: Patient Exam Limitations: No Limitations Past History - Past Medical History Allergies/Adverse Reactions: Allergies Allergy/AdvReac Type Severity Reaction Status Date / Time No Known Allergies Allergy Verified 06/13/19 09:19 Home Medications: Ambulatory Orders Metoprolol Succinate [Toprol Xl] 100 mg PO HS 09/07/16 Oxycodone HCl 30 mg PO ASDIR 04/15/19 Aspirin [ASA -] 325 mg PO DAILY@0800 #30 tablet 05/31/19 Hydroxyzine HCl 10 mg PO Q6H #30 tablet 05/31/19 Pantoprazole Sodium [Protonix -] 40 mg PO DAILY #30 tablet.ec 05/31/19 Rifampin [Rifadin] 300 mg PO BID #84 capsule 05/31/19 Sennosides/Docusate Sodium [Pericolace -] 2 tablet PO BID #60 tablet 05/31/19 Vancomycin 1,250 mg IVPB Q12H vial 05/31/19 traZODone HCL [Desyrel -] 100 mg PO HS tablet 05/31/19 Naloxegol Oxalate [Movantik] 25 mg PO DAILY 06/07/19 Oxycodone HCl 30 mg PO TID PRN #15 tablet MDD 3 06/13/19 Anemia: No Asthma: No Cancer: No Cardiac Disorders: No CVA: No COPD: No CHF: No Dementia: No Diabetes: No GI Disorders: No Disorders: No HTN: Yes Hypercholesterolemia: No Liver Disease: No Seizures: No Thyroid Disease: No - Surgical History Abdominal Surgery: Yes (Umbilical Hernia Repair) Appendectomy: No Cardiac Surgery: No Cholecystectomy: No Lung Surgery: No Neurologic Surgery: Yes (Lumbar Discectomy x2) Orthopedic Surgery: Yes (Right Kne Meniscus Repair, Lumbar Discectomy x2, Insertion of spinal stimula) - Immunization History Immunization Up to Date: Yes - Psycho Social/Smoking Cessation Hx Smoking History: Current every day smoker Have you smoked in the past 12 months: Yes Information on smoking cessation initiated: No Hx Alcohol Use: Yes Drug/Substance Use Hx: Yes Substance Use Type: None Hx Substance Use Treatment: No *Physical Exam - Vital Signs Last Vital Signs Temp Pulse Resp BP Pulse Ox 98.1 F 72 16 131/68 97 06/19/19 15:32 06/19/19 15:32 06/19/19 15:32 06/19/19 15:32 06/19/19 15:32 - Physical Exam General Appearance: No: Apparent Distress Respiratory/Chest: positive: Lungs Clear, Normal Breath Sounds. negative: Respiratory Distress Cardiovascular: positive: Regular Rhythm, Regular Rate, S1, S2. negative: Murmur Gastrointestinal/Abdominal: positive: Normal Bowel Sounds, Soft. negative: Tender, Distended, Guarding, Rebound Extremity: positive: Other (L hip scar, healed, no erythema, no skin color changes) Neurologic: positive: Alert ED Treatment Course - LABORATORY CBC & Chemistry Diagram: 06/19/19 16:21 06/19/19 16:21 - ADDITIONAL ORDERS Additional order review: Laboratory Results 06/19/19 06/19/19 06/19/19 16:21 16:21 16:21 PT with INR 11.80 INR 1.00 Sodium Potassium Chloride Carbon Dioxide Anion Gap BUN Creatinine Est GFR (CKD-EPI)AfAm Est GFR (CKD-EPI)NonAf Random Glucose Calcium Total Bilirubin AST ALT Alkaline Phosphatase Total Protein Albumin Urine Color Dk yellow Urine Appearance Clear Urine pH 5.0 Ur Specific [place] 1.022 Urine Protein Negative Urine Glucose (UA) Negative Urine Ketones Negative Urine Blood Negative Urine Nitrite Negative Urine Bilirubin Negative Urine Urobilinogen 0.2 Ur Leukocyte Esterase Negative Opiates Screen Positive A* Methadone Screen Negative Barbiturate Screen Negative Phencyclidine Screen Negative Ur Amphetamines Screen Positive A* MDMA (Ecstasy) Screen Positive A* Benzodiazepines Screen Negative Cocaine Screen Negative U Marijuana (THC) Screen Negative 06/19/19 16:21 PT with INR INR Sodium 138 Potassium 4.5 Chloride 104 Carbon Dioxide 31 Anion Gap 3 L BUN 11.0 Creatinine 0.9 Est GFR (CKD-EPI)AfAm 108.73 Est GFR (CKD-EPI)NonAf 93.82 Random Glucose 115 H Calcium 8.6 Total Bilirubin 0.2 AST 15 ALT 28 Alkaline Phosphatase 94 Total Protein 7.5 Albumin 3.1 L Urine Color Urine Appearance Urine pH Ur Specific [place] Urine Protein Urine Glucose (UA) Urine Ketones Urine Blood Urine Nitrite Urine Bilirubin Urine Urobilinogen Ur Leukocyte Esterase Opiates Screen Methadone Screen Barbiturate Screen Phencyclidine Screen Ur Amphetamines Screen MDMA (Ecstasy) Screen Benzodiazepines Screen Cocaine Screen U Marijuana (THC) Screen 06/19/19 16:21 RBC 3.93 L MCV 80.4 MCHC 32.1 RDW 15.8 D MPV 7.0 L Neutrophils % 54.8 D Lymphocytes % 26.3 D Monocytes % 5.3 Eosinophils % 12.5 H D Basophils % 1.1 Medical Decision Making - Medical Decision Making 58 y/o M hx of HTN, L hip replacement s/p revision due to infection (getting abx via PICC x 6 weeks, started 05/28, on Vanc and Rifampin), substance abuse presents for clearance for detox. Patient with long standing history of opiates , but states after surgery, when he ran out of Oxycodone, he started using heroin off the streets for pain (states it was snorted). He saw pain management 2 days ago, Dr. Smallwood, who recommended patient get detox. Patient called [facility] yesterday who told him to come to [facility] for medical clearance. Denies fever , sob, cp, abd pain, n/v/d. EKG: NSR at 66 bpm, no ST-T changes, no ectopy Called [address] [place] [address] - who stated they needed clearance given patient has PICC and they need a doctor who can put in orders for the antibiotics in the system D/W ID, Dr. Alves, who saw the patient in previous visit, who states he will put the orders in Currently there is no bed for detox, but per [address] [place] [address], patient can come in tomorrow at 8 AM for detox Stable for dc 06/19/19 18:31 Discharge - Discharge Information Problems reviewed: Yes Clinical Impression/Diagnosis: Desire for detoxification Condition: Stable Disposition: HOME - Admission No - Additional Discharge Information Prescription Drug Monitoring Program (I-STOP) results: I-STOP not reviewed - Follow up/Referral Referrals: Agustin Bonds [Primary Care Provider] - - Patient Discharge Instructions Additional Instructions: Thank you for choosing [facility]. It was a pleasure taking care of you. Please go to detox center on [address] [place] [address] tomorrow morning at 8 AM with proper ID as was discussed (license, SSN, certificate) Please also bring along these paper work. You are medically cleared from ER perspective You will need to continue your antibiotics via PICC Return to the Emergency Department for any concerning symptoms. - Post Discharge Activity
--- NOTE | 2019-06-20 11:56 | EKG ---
Test Reason : Blood Pressure : / mmHG Vent. Rate : 066 BPM Atrial Rate : 066 BPM P-R Int : 180 ms QRS Dur : 090 ms QT Int : 374 ms P-R-T Axes : 043 -32 030 degrees QTc Int : 392 ms NORMAL SINUS RHYTHM POSSIBLE LEFT ATRIAL ENLARGEMENT LEFT AXIS DEVIATION ABNORMAL ECG WHEN COMPARED WITH ECG OF 27-MAY-2019 12:34, T WAVE AMPLITUDE HAS INCREASED IN LATERAL LEADS Confirmed by EDNA LYNCH, MANDIE ([id number]) on 06/20/2019 11:56:20 AM Referred By: Confirmed By:MNADIE BISHOP MD
== END 2019-06-19 18:50 | disposition home or self-care (01) ==
LOC: JER 15:22
DX: Z13.89 Encounter for screening for other disorder (principal); I10 Essential (primary) hypertension; Z96.641 Presence of right artificial hip joint; F19.10 Other psychoactive substance abuse, uncomplicated
CPT/HCPCS: 36415; 80053; 80307; 81003; 85025; 85610; 93005; 93010; 99282-25

== ENCOUNTER 2019-06-20 11:12 | Inpatient (IN) | payer OTHER ==
[2019-06-20 12:06] VITALS: TEMP 98.1; BMI 30.7
--- NOTE | 2019-06-20 12:29 | PDOC ---
History of Present Illness - General Stated Complaint: DETOX Time Seen by Provider: 06/20/19 12:10 - History of Present Illness Initial Comments: Mr. Shore is a 58 y/o male with PMH significant for opioid and heroin use disorder, hypertension, and s/p left hip replacement in May 2019. Reports that he ran out of oxycodone a week ago and was not able to make an appointment and has been taking 1g of heroin every day for the past week. He also takes 1g vanc IV BID and is scheduled for that until Jul. Reports that he presented to [facility] for heroin detox, but was not able to be accepted 2/2 his course of IV vanc via PICC line. At present, reports anxiety, diaphoresis, stomach cramps. Denies fever/chills. Denies hallucinations. Denies chest pain/shortness of breath. Denies change in urine or stool. Last bowel movement yesterday. Denies alcohol/smoking/other drug use. Past History - Past Medical History Allergies/Adverse Reactions: Allergies Allergy/AdvReac Type Severity Reaction Status Date / Time No Known Allergies Allergy Verified 06/20/19 08:53 Home Medications: Ambulatory Orders Metoprolol Succinate [Toprol Xl] 100 mg PO HS 09/07/16 Aspirin [ASA -] 325 mg PO DAILY@0800 #30 tablet 05/31/19 Hydroxyzine HCl 10 mg PO Q6H #30 tablet 05/31/19 Rifampin [Rifadin] 300 mg PO BID #84 capsule 05/31/19 Sennosides/Docusate Sodium [Pericolace -] 2 tablet PO BID #60 tablet 05/31/19 Vancomycin 1,250 mg IVPB Q12H vial 05/31/19 traZODone HCL [Desyrel -] 100 mg PO HS tablet 05/31/19 Naloxegol Oxalate [Movantik] 25 mg PO DAILY 06/07/19 Oxycodone HCl 30 mg PO ASDIR PRN MDD 3 06/20/19 Anemia: No Asthma: No Cancer: No Cardiac Disorders: No CVA: No COPD: No CHF: No Dementia: No Diabetes: No GI Disorders: No Disorders: No HTN: Yes Hypercholesterolemia: No Liver Disease: No Seizures: No Thyroid Disease: No - Surgical History Abdominal Surgery: Yes (Umbilical Hernia Repair) Appendectomy: No Cardiac Surgery: No Cholecystectomy: No Lung Surgery: No Neurologic Surgery: Yes (Lumbar Discectomy x2) Orthopedic Surgery: Yes (Right Kne Meniscus Repair, Lumbar Discectomy x2, Insertion of spinal stimula) - Immunization History Immunization Up to Date: Yes - Psycho Social/Smoking Cessation Hx Smoking History: Never smoked Have you smoked in the past 12 months: Yes Information on smoking cessation initiated: No Hx Alcohol Use: No Drug/Substance Use Hx: Yes (daily heroin use/oxycontin use) Substance Use Type: None Hx Substance Use Treatment: No Review of Systems - Review of Systems Comments:: GENERAL/CONSTITUTIONAL: No fever or chills. No weakness._ HEAD, EYES, EARS, NOSE AND THROAT: No change in vision. No change in hearing. No sore throat._ CARDIOVASCULAR: No chest pain or shortness of breath_ RESPIRATORY: Denies cough, hemoptysis_ GASTROINTESTINAL: Reports stomach cramps. No nausea, vomiting, diarrhea or constipation._ GENITOURINARY: No dysuria, frequency, or change in urination._ MUSCULOSKELETAL: No joint or muscle swelling or pain. No neck or back pain._ SKIN: No rash. Reports diaphoresis. NEUROLOGIC: No headache, vertigo, loss of consciousness, or change in strength/ sensation._ ENDOCRINE: No increased thirst. No abnormal weight change_ HEMATOLOGIC/LYMPHATIC: No anemia, easy bleeding, or history of blood clots._ ALLERGIC/IMMUNOLOGIC: No hives or skin allergy._ *Physical Exam - Vital Signs Last Vital Signs Temp Pulse Resp BP Pulse Ox 98.1 F 64 18 143/99 98 06/20/19 11:54 06/20/19 11:54 06/20/19 11:54 06/20/19 11:54 06/20/19 11:54 - Physical Exam GENERAL: Awake, alert, and oriented to person/place/time, in no acute distress. Able to rest comfortably in bed. HEAD: No signs of trauma, normocephalic, atraumatic _ EYES: PERRLA, EOMI, sclera anicteric, conjunctiva clear_ ENT: Hearing grossly normal, nares patent, oropharynx clear without exudates. No uvular deviation. Moist mucosa_ NECK: Normal ROM, supple, no lymphadenopathy, JVD, or masses_ LUNGS: No distress, speaks in full sentences, clear to auscultation bilaterally _ HEART: Regular rate and rhythm, normal S1 and S2, no murmurs appreciated, peripheral pulses normal and equal bilaterally._ ABDOMEN: Soft, nontender, normoactive bowel sounds. No guarding, no rebound. No masses_ EXTREMITIES: No lower extremity edema. Surgical incision over left lateral hip is clean, dry, intact, non-erythematous. 5/5 strength and sensation in bilateral lower extremities. NEUROLOGICAL: Cranial nerves II through XII grossly intact. Normal speech, normal gait, no focal sensorimotor deficits. Finger to nose testing intact. No intention or resting tremor appreciated. SKIN: Warm, mild diaphoresis, normal turgor, no rashes or lesions noted_ ED Treatment Course - LABORATORY CBC & Chemistry Diagram: 06/20/19 15:02 06/20/19 15:02 Medical Decision Making - Medical Decision Making 06/20/19 12:54 58M presenting with withdrawal symptoms after 6 days of daily heroin use 1g. Sent in from [facility] 2/2 PICC line and IV vanc treatment course. -cbc, cmp -ekg -ua, utox -xanax, ativan 06/20/19 15:09 D/w Case management who states that no detox facility is available give his PICC line. Plan to admit for detox. EKG shows NSR, 69 bpm, left axis deviation, no ST elevation/depression, QTc 415. 06/20/19 18:18 Labs reviewed. Laboratory Last Values WBC 6.7 K/mm3 (4.0-10.0) 06/20/19 15: RBC 4.28 M/mm3 (4.00-5.60) 06/20/19 15:02 Hgb 11.1 GM/dL (11.7-16.9) L 06/20/19 15:02 Hct 33.8 % (35.4-49) L 06/20/19 15:02 MCV 79.1 fl (80-96) L 06/20/19 15:02 MCH 25.9 pg (25.7-33.7) 06/20/19 15: MCHC 32.7 g/dl (32.0-35.9) 06/20/19 15:02 RDW 15.6 % (11.9-15.9) 06/20/19 15:02 Plt Count 374 K/MM3 (134-434) 06/20/19 15:02 MPV 7.0 fl (7.5-11.1) L 06/20/19 15:02 Absolute Neuts (auto) 4.2 K/mm3 (1.5-8.0) 06/20/19 15:02 Neutrophils % 62.6 % (42.8-82.8) 06/20/19 15:02 Lymphocytes % 21.7 % (8-40) 06/20/19 15:02 Monocytes % 5.1 % (3.8-10.2) 06/20/19 15:02 Eosinophils % 9.6 % (0-4.5) H 06/20/19 15:02 Basophils % 1.0 % (0-2.0) 06/20/19 15:02 Nucleated RBC % 0 % (0-0) 06/20/19 15:02 Sodium 139 mmol/L (136-145) 06/20/19 15:02 Potassium 3.9 mmol/L (3.5-5.1) 06/20/19 15:02 Chloride 105 mmol/L (98-107) 06/20/19 15:02 Carbon Dioxide 29 mmol/L (21-32) 06/20/19 15:02 Anion Gap 4 MMOL/L (8-16) L 06/20/19 15:02 BUN 7.0 mg/dL (7-18) 06/20/19 15:02 Creatinine 0.8 mg/dL (0.55-1.3) 06/20/19 15:02 Est GFR (CKD-EPI)AfAm 114.13 06/20/19 15:02 Est GFR (CKD-EPI)NonAf 98.47 06/20/19 15:02 Random Glucose 124 mg/dL (74-106) H 06/20/19 15:02 Calcium 9.1 mg/dL (8.5-10.1) 06/20/19 15:02 Total Bilirubin 0.2 mg/dL (0.2-1) 06/20/19 15:02 AST 16 U/L (15-37) 06/20/19 15:02 ALT 25 U/L (13-61) 06/20/19 15:02 Alkaline Phosphatase 99 U/L (45-117) 06/20/19 15:02 Total Protein 8.0 g/dl (6.4-8.2) 06/20/19 15:02 Albumin 3.3 g/dl (3.4-5.0) L 06/20/19 15:02 Urine Color Yellow 06/20/19 12:40 Urine Appearance Clear 06/20/19 12:40 Urine pH >= 9.0 (5.0-8.0) H D 06/20/19 12:40 Ur Specific [place] 1.010 (1.010-1.035) 06/20/19 12:40 Urine Protein Negative (NEGATIVE) 06/20/19 12:40 Urine Glucose (UA) Negative (NEGATIVE) 06/20/19 12:40 Urine Ketones Negative (NEGATIVE) 06/20/19 12:40 Urine Blood Negative (NEGATIVE) 06/20/19 12:40 Urine Nitrite Negative (NEGATIVE) 06/20/19 12:40 Urine Bilirubin Negative (NEGATIVE) 06/20/19 12:40 Urine Urobilinogen 0.2 mg/dL (0.2-1.0) 06/20/19 12:40 Ur Leukocyte Esterase Negative (NEGATIVE) 06/20/19 12:40 Opiates Screen Positive ng/ml (AJNZET=926) A* 06/20/19 12:40 Methadone Screen Negative ng/ml (QTFWTL=634) 06/20/19 12:40 Barbiturate Screen Negative ng/ml (EXUXIE=350) 06/20/19 12:40 Phencyclidine Screen Negative ng/ml (CUTOFF=25) 06/20/19 12:40 Ur Amphetamines Screen Negative ng/ml (SHZIBO=536) 06/20/19 12:40 MDMA (Ecstasy) Screen Negative ng/ml (DNGSTY=321) 06/20/19 12:40 Benzodiazepines Screen Negative ng/ml (THLWVW=892) 06/20/19 12:40 Cocaine Screen Negative ng/ml (IELKYW=310) 06/20/19 12:40 U Marijuana (THC) Screen Negative ng/ml (CUTOFF=50) 06/20/19 12:40 I d/w Dr. Mcdaniel who accepts the patient for admission. 06/20/19 19:28 Pt eloped from the ED without notifying ED staff. Patient still has PICC line in his left arm. Given his hx of IV drug use, will contact [place] [employer] as PICC line needs to be removed. Discharge - Discharge Information Problems reviewed: Yes Clinical Impression/Diagnosis: Opioid abuse, Heroin abuse Condition: Guarded Disposition: ELOPED - Admission No - Follow up/Referral - Patient Discharge Instructions - Post Discharge Activity
[2019-06-20] MEDS ORDERED: ALPRAZolam 1 MG TABLET PO PRN (12:44)
[2019-06-20] MEDS ORDERED: VANCOMYCIN 1 GM in D5W (PRE-DOCKED) 1,000 MG/250 ML IVPB ONE (12:46)
[2019-06-20] MEDS ORDERED: ALPRAZolam 0.25 MG TABLET ONE (12:52)
[2019-06-20] MEDS ORDERED: VANCOMYCIN 1 GRAM (PRE-DOCKED) 1,000 MG/250 ML BAG IVPB ONE (13:13)
[2019-06-20] MEDS ORDERED: LORazepam 2 MG/ML SDV VIAL ONE ×2 (13:28→14:42)
[2019-06-20 13:59] LABS: PH,URINE >= 9.0 (5.0-8.0); URINE APPEARANCE CLEAR; URINE BILIRUBIN NEGATIVE (NEGATIVE); URINE COLOR YELLOW; URINE GLUCOSE (UA) NEGATIVE (NEGATIVE); URINE KETONE NEGATIVE (NEGATIVE); URINE LEUK ESTERASE NEGATIVE (NEGATIVE); URINE NITRITE NEGATIVE (NEGATIVE); URINE PROTEIN NEGATIVE (NEGATIVE); URINE UROBILINOGEN 0.2 mg/dL (0.2-1.0)
[2019-06-20 15:03] LABS: COCAINE, UR NEGATIVE ng/ml (CUTOFF=300); METHADONE, UR NEGATIVE ng/ml (CUTOFF=300); PHENCYCLIDINE,URINE NEGATIVE ng/ml (CUTOFF=25); URINE AMPHETAMINES NEGATIVE ng/ml (CUTOFF=500); URINE BARBITURATES NEGATIVE ng/ml (CUTOFF=200); URINE BENZODIAZEPINES NEGATIVE ng/ml (CUTOFF=200)
[2019-06-20 15:19] LABS: OPIATES, URI POSITIVE ng/ml (CUTOFF=300)
[2019-06-20 15:29] LABS: EOS % 9.6 % (0-4.5); HEMATOCRIT 33.8 % (35.4-49); HEMOGLOBIN 11.1 GM/dL (11.7-16.9); LYMPH % 21.7 % (8-40); MCH 25.9 pg (25.7-33.7); MCHC 32.7 g/dl (32.0-35.9); MEAN CELL VOLUME 79.1 fl (80-96); MONO % 5.1 % (3.8-10.2); NEUT % 62.6 % (42.8-82.8); PLATELET COUNT 374 K/MM3 (134-434); RBC 4.28 M/mm3 (4.00-5.60); RDW 15.6 % (11.9-15.9); WHITE BLOOD COUNT 6.7 K/mm3 (4.0-10.0)
[2019-06-20 16:00] LABS: ALBUMIN 3.3 g/dl (3.4-5.0); BILIRUBIN,TOTAL 0.2 mg/dL (0.2-1); CALCIUM 9.1 mg/dL (8.5-10.1); CREATININE 0.8 mg/dL (0.55-1.3); POTASSIUM 3.9 mmol/L (3.5-5.1)
--- NOTE | 2019-06-20 17:14 | PDOC ---
Documentation entered by Lesly Delcid SCRIBE, acting as scribe for Ortiz Gomez MD. Ortiz Gomez MD: This documentation has been prepared by the Bhavin bryson Brenda, SCRIBE, under my direction and personally reviewed by me in its entirety. I confirm that the documentation accurately reflects all work, treatment, procedures, and medical decision making performed by me. 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 for heroin detox. Patient reports that he ran out of oxycodone about 1 week ago and has not been able to make an appointment, so he has been taking 1g of heroin daily for the past week. Patient also endorses diaphoresis, nausea, and abdominal cramping. Per [facility], pt can not be admitted there for detox 2/2 PICC line. Pt denies fevers, chills, headache, dizziness, focal weakness/numbness, CP, SOB, vomiting , LE edema, urinary sxs. Allergies: NKA - Physicial Exam PE: 06/20/19 12:14 Agree with resident exam - Medical Decision Making 06/20/19 17:10 58yo M presents to the ED for detox from heroin. Pt with withdrawal sxs requiring multiple doses of benzo's in the ED Case management involved, pt can not get detox at any nearby facility with PICC line Will admit pt for detox here, awaiting call back from hospitalist.
[2019-06-20 17:23] VITALS: BP 174/105; PULSE 84
--- NOTE | 2019-06-20 19:34 | PN ---
Physical Exam: Patient eloped from the ED prior to making a complete assessment for admission. Was notified of incident by nurse Alexa and subsequently admission was cancelled by ED physician Dr. Boris Fitch. Visit type - Emergency Visit Emergency Visit: Yes ED Registration Date: 06/20/19 Care time: The patient presented to the Emergency Department on the above date and was hospitalized for further evaluation of their emergent condition. - New Patient This patient is new to me today: Yes Date on this admission: 06/20/19 - Critical Care Critical Care patient: No - Discharge Referral Referred to [facility] Med [facility] No
--- NOTE | 2019-06-21 13:49 | EKG ---
Test Reason : Blood Pressure : / mmHG Vent. Rate : 069 BPM Atrial Rate : 069 BPM P-R Int : 170 ms QRS Dur : 094 ms QT Int : 388 ms P-R-T Axes : 036 -35 015 degrees QTc Int : 415 ms POOR DATA QUALITY, INTERPRETATION MAY BE ADVERSELY AFFECTED NORMAL SINUS RHYTHM LEFT AXIS DEVIATION ABNORMAL ECG WHEN COMPARED WITH ECG OF 19-JUN-2019 16:17, NO SIGNIFICANT CHANGE WAS FOUND Confirmed by GERMAN GARCIA MD ([id number]) on 06/21/2019 1:48:35 PM Referred By: Confirmed By:GERMAN GARCIA MD
== END 2019-06-20 19:27 | disposition left against medical advice (07) | DRG 894 ==
LOC: JER 11:12 → JERBED 18:17
PROC: 3E033NZ Introduction of Analgesics, Hypnotics, Sedatives into Peripheral Vein, Percutaneous Approach (ICD-10-PCS; principal; 2019-06-20)
PROC: 3E03329 Introduction of Other Anti-infective into Peripheral Vein, Percutaneous Approach (ICD-10-PCS; 2019-06-20)
DX: F11.23 Opioid dependence with withdrawal (principal); I10 Essential (primary) hypertension
CPT/HCPCS: 36415; 80053; 80307; 81003; 85025; 93005; 93010; 99283-25